=== PATIENT | male | born 1940 | race Caucasian/White ===

== ENCOUNTER 2024-09-19 19:16 | Inpatient (IN) | payer OTHER, SELFPAY ==
[2024-09-19 16:30] VITALS: BP 117/58
[2024-09-19] MEDS: TYLENOL 650 MG PO (16:46)
[2024-09-19 16:55] LABS: % Basophils 0.2 % (0-2); % Immature Granulocytes 0.6 % (0-0.5); % Lymphocytes 3.2 % (20.5-51.1); % Monocytes 6.1 % (1.7-9.3); % Neutrophils 89.9 % (42.2-75.2); Absolute Basophils 0.1 10^3/uL (0-0.2); Absolute Immature Granulocytes 0.1 10^3/uL (0-0.05); Absolute Lymphocytes 0.7 10^3/uL (1.2-3.4); Absolute Monocytes 1.3 10^3/uL (0.1-0.6); Absolute Neutrophils 18.4 10^3/uL (1.4-6.5); Hematocrit 30.7 % (39.0-52.0); Hemoglobin 10.6 g/dL (13.0-18.0); Mean Corp Hgb Conc. 34.5 g/dL (33.0-37.0); Mean Corpuscular Volume 92.7 fL (80.0-94.0); Mean Platelet Volume 9.1 fL (7.4-10.4); Nucleated Red Blood Cells % 0 % (-); Platelet Count 289 10^3/uL (130-400); Red Blood Cell Count 3.31 10^6/uL (4.70-6.10); Red Cell Dist. Width 12.5 % (11.5-14.5); White Blood Cell Count 20.5 10^3/uL (4.8-10.8)
[2024-09-19 17:09] LABS: ALT (SGPT) 36 U/L (0-50); AST (SGOT) 34 U/L (17-59); Albumin 3.8 g/dl (3.5-5.0); Alkaline Phosphatase 140 U/L (38-126); Blood Urea Nitrogen 37 mg/dl (9-20); Calcium 8.6 mg/dl (8.4-10.2); Carbon Dioxide 22 mmol/L (22-30); Chloride 97 mmol/L (98-107); Glucose 280 mg/dl (70-99); Potassium 5.4 mmol/L (3.5-5.1); Sodium 133 mmol/L (135-145); Total Bilirubin 1.5 mg/dl (0.2-1.3); Total Protein 6.7 g/dl (6.3-8.2); eGFR 25.96
[2024-09-19 17:11] LABS: Lactic Acid 4.4 mmol/L (0.7-2.0)
[2024-09-19 17:54] VITALS: BMI 32.6
--- NOTE | 2024-09-19 18:02 | HPS.HSE ---
Family Physician
-
Family Physician:
Chief Complaint
-
3rd left finger infection
History of Present Illness
Patient is a 83-year-old male with past medical history significant for hypertension, paroxysmal atrial fibrillation, HFrEF, CKD IIIb and DM II who presented to [facility] ED for evaluation of 3rd left finger infection. Patient reports a blister to the
finger a few weeks ago, he stated it popped and looked like it was healing. It progressively got worse and went to see primary care today for it. Primary care referred him to ED for evaluation and treatment. Patient reports 'sweats' starting 4 days
ago, denies taking temperature. Denies fever, chills, cough, shortness of breath, nausea, vomiting, constipation, diarrhea or urinary symptoms.
Medical History
Past Medical History
Past Medical History: Reports Other
Additional Past Medical History:
hypertension
paroxysmal atrial fibrillation
HFrEF
CKD IIIb
DM II
COPD
anemia
Past Surgical History: Reports Other
Additional Past Surgical History:
pacemaker
appendectomy
R TKR
bilateral inguinal hernias
hiatal hernia repair
cardiac cath
cardiac ablation
Social History
Tobacco: Former Smoker
Alcohol: None
Drug: None
Personal:
Living: With Family
Family History
Family History: Not pertinent
Allergies / Home Medications
Allergies reflects when Allergies were last updated in [facility].
Home Medications with original date entered in [facility]
Allergy/Medication List:
Allergies
Allergy/AdvReac Type Severity Reaction Status Date / Time
No Known Allergies Allergy Verified 09/19/24 16:29
Home Medications
lovastatin 20 mg tablet 20 mg PO HS High cholesterol 08/10/22
magnesium oxide 400 mg PO DAILY Electrolyte Repletion 08/10/22
umeclidinium 62.5 mcg-vilanterol 25 mcg/actuation powdr for inhalation (Anoro Ellipta) 1 inh inhalation R DAILY Lung/breathing issues 08/10/22
apixaban 2.5 mg tablet (Eliquis) 2.5 mg PO BID 30 days #60 tabs 08/13/22
cyanocobalamin (vitamin B-12) 1,000 mcg tablet 1,000 mcg PO DAILY #30 tabs 08/18/22
ferrous sulfate 325 mg (65 mg iron) tablet (FeroSul) 325 mg PO DAILY #30 tabs 10/11/22
insulin aspar prot-insulin aspart 100 unit/mL (70-30) subcutaneous pen (Novolog Mix 70-30FlexPen U-100) 28 unit (0.28 mL) SC BID@0800,1700 #5 ea 10/11/22
metoprolol succinate 50 mg tablet,extended release 24 hr 100 mg (2 x 50 mg) PO BID #120 tabs 10/11/22
torsemide 5 mg tablet 10 mg (2 x 5 mg) PO DAILY #60 tabs 10/11/22
acetaminophen 500 mg tablet (Tylenol Extra Strength) 1,000 mg PO Q6HPRN PRN mild pain 09/19/24
docusate sodium 100 mg capsule (Stool Softener) 100 mg PO DAILYPRN PRN constipation 09/19/24
Review of Systems
-
History Source: Patient
Constitutional: Reports Night Sweats
EENT: Reports No Symptoms
Respiratory: Reports No Symptoms
Cardiac: Reports No Symptoms
Abdomen/GI: Reports No Symptoms
: Reports No Symptoms
Musculoskeletal: Reports Other (left hand 3rd digits edema and erythema )
Skin: Reports No Symptoms
Neurological: Reports No Symptoms
Endocrine: Reports No Symptoms
Hematologic/Lymphatic: Reports No Symptoms
Psych: Reports No Symptoms
Physical Exam
Vital Signs
Vital Signs
Temp Pulse Resp BP Pulse Ox
102.7 F H 74 20 117/58 96
09/19/24 16:30 09/19/24 16:30 09/19/24 16:30 09/19/24 16:30 09/19/24 16:30
Physical Exam
General: Well Developed, Well Nourished, No Apparent Distress, Conversant and Morbidly Obese
HEENT: NormoCephalic, Moist mucous membranes, Atraumatic, [place] Conjunctivae, Nose Appears Normal and Ears Appear Normal
Respiratory: Clear and Non Labored Respirations
Cardiac: S1/S2 and Regular Rhythm; No Murmur or Rub
Breast: Deferred by me
GI: Soft, Non Tender and Normal Bowel Sounds; No Organomegaly
Rectal: Deferred by Provider
Genito-urinary: Deferred by me
Musculoskeletal: No Clubbing, No Cyanosis and Other (left hand edema )
Skin: Warm (left hand warm to touch with edema ) and IV/Catheter Site
Neuro: Awake, Alert, AO x 3 and Nonfocal/grossly intact
Psych: Calm and Intact Judgment/Insight
Laboratory Results
-
09/19/24 16:45
09/19/24 16:45
Laboratory Results
Lactic Acid 4.4 mmol/L (0.7-2.0) H* 09/19/24 16:45
Total Bilirubin 1.5 mg/dl (0.2-1.3) H 09/19/24 16:45
AST 34 U/L (17-59) 09/19/24 16:45
ALT 36 U/L (0-50) 09/19/24 16:45
Alkaline Phosphatase 140 U/L (38-126) H 09/19/24 16:45
Data Reviewed
-
Diagnostic Radiology: Report Reviewed by me (Left hand: There is diffuse soft tissue swelling with small foci of gas along the middle finger. There is destruction/osteolysis of the distal phalanx consistent with osteomyelitis.)
Lab Data: Labs Reviewed by me (WBC 20.5, hgb 10.6, hct 30.7, neut 89.9, BUN 37, Creat 2.4, Lactic 4.4)
Impression/Plan
-
IMPRESSION/PLAN:
#osteomyelitis
#3rd Left finger infection
WBC 20.5, neut 89.9, Lactic 4.4
Left hand x-ray: There is diffuse soft tissue swelling with small foci of gas along the middle finger. There is destruction/osteolysis of the distal phalanx consistent with osteomyelitis.
- Admit to med/surg
- IV antibiotics
- Consult ID
- Consult orthopedics
- supportive care
- NPO after midnight for possible OR tomorrow
#hyperkalemia
K+ 5.4
likely secondary to hypovolemia
- IVF
- monitor BMP
#DM II
#hyperglycemia
glucose 280
likely secondary to infectious process
- AccuCheck AC & HS
- continue Novolog Mix 70/30
- SSI
#hypertension
- continue metoprolol
#paroxysmal atrial fibrillation
- continue metoprolol
- hold Eliquis
#HFrEF
- hold torsemide
- daily weights
- I & Os
- SSI
#CKD III
BUN 37, Creat 2.4 (appears to be baseline)
- IVF
monitor BMP
#COPD
- continue Anoro Ellipta
#anemia
hgb 10.6, hct 30.7
- continue ferrous sulfate
Code status: full code
DVT Prophylaxis: SCDs
[2024-09-19 18:04] VITALS: BP 98/76
--- NOTE | 2024-09-19 18:11 | ED.GENMED ---
History of Present Illness
General
Chief Complaint: Skin Problem
Source: patient
Exam Limitations: none
Time Seen by Provider: 09/19/24 17:43
Nursing documentation reviewed up to this point in time: agreed with
History of Present Illness
History of Present Illness:
83-year-old male diabetic left finger swelling pain for about a month saw his PCP apparently was not started on antibiotics but referred here for evaluation has been having fevers, pain with some drainage denies any direct trauma
Past History
Past History
ED Past Medical History: Arrthythmia, CAD, CHF, COPD, HTN, Hypercholesterolemia and IDDM
ED Past Surgical History: Appendectomy, Cardiac (catheterizations, ablations, pacemaker, cardioversions), Orthopedic and Other
Social History
Tobacco: Former smoker
Alcohol: None
Drug: None
Personal:
Living: with family
Employment: Retired
Family History
Family History: Other
Review of Systems
Review of Systems
All Other Systems: Not applicable
Constitutional: Reports fever and fatigue
Musculoskeletal: Reports joint pain, joint swelling, muscle stiffness and edema
Phy Exam
Physical Exam
Physical Exam:
Physical Exam
General: no apparent distress, not acutely ill febrile
Neck: No jaw
Heart: s1/s2 regular rate and rhythm, no murmur. equal radial pulses.
Lungs: no acute respiratory distress. clear bilaterally
Neuro: alert and oriented. no focal neurological deficits
Skin: no rash
Psychiatric: well kept. interactive and cooperative
Extremities: Left long finger held in flexion tenderness along the entire flexor and extensor sheath malodorous
Course
Orders/Labs/Results
Orders:
Orders
09/19/24 Dinner
2000 calorie (17 carb) Diabetic
09/19/24 16:37
Hand, Left 3 View [CR Hand - Left Min 3 Views] Urgent
Comment:
Reason For Exam: swelling redness to Left 3rd finger and Left hand
09/19/24 16:44
Acetaminophen [Tylenol] 650 mg .ROUTE .STK-MED ONE
09/19/24 16:45
Complete Blood Count/With Diff Urgent
Comprehensive Metabolic Panel Urgent
Lactic Acid Q4H
Comment: ON ICE, CANCEL 2ND ORDER IF FIRST LACTIC ACID LEVEL <2
Blood Culture Q20M
RYAN Source: Blood/Venous
Specimen Description:
Comment: Urgent from separate sites. If patient screens positive for possible sepsis
Acetaminophen [Tylenol] 650 mg PO NOW STA
09/19/24 17:05
Blood Culture Q20M
RYAN Source: Blood/Venous
Specimen Description:
Comment: Urgent from separate sites. If patient screens positive for possible sepsis
09/19/24 18:12
Vancomycin [Vancocin] 2,000 mg 0.9% Sodium Chloride 500 ml [Nss] 500 ml IV NOW
09/19/24 18:25
0.9% Sodium Chloride 1000 ml [Nss] 1,000 ml IV BOLUS
09/19/24 18:37
Admit/Transfer Patient As Directed
Co-Sign Provider:
Level of Care: Inpatient admission
Assign to:: Medical/Surgical
Physician / Group: Alexandra Keene
Diagnosis: Sepsis, osteomyelitis, hyperkalemia, hyperglycemia
Reason for Hospitalization: Sepsis, osteomyelitis, hyperkalemia, hyperglycemia
Expected length of stay greater than two midnights?: Yes
ELOS- Estimated Length of Stay in days: 3
I certify the patient meets the requirements for IP care: Yes
PRN Pain Medication Management As Directed
May give lesser potent ordered pain med per pt: Yes
preference::
Protocol:: Medication orders for pain may be administered in a
manner that supports deferring to patient preference
when the pt is:
- Requesting an ordered lesser potent pain medication.
Least to most potent pain medications are defined
as: acetaminophen < NSAID < tramadol < opioids
(morphine, oxycodone, hydromorphone).
- Requesting a lesser dose of the same medication IF
ORDERED.
- Requesting a less intrusive route of administration
if both routes are prescribed by the provider (PO <
IV).
09/19/24 18:42
Code Status As Directed
Resuscitation Status: Full Code
09/19/24 20:25
0.9% Sodium Chloride 1000 ml [Nss] 1,000 ml IV 75 mls/hr
Acetaminophen [Tylenol] 650 mg PO Q4HPRN PRN
Dextrose 50%-Water [Dextrose 50% Syringe] 12.5 grams IV [id number] PRN
Glucagon [GlucaGen] 1 mg IM PRN PRN
09/19/24 20:25
INFECTIOUS DISEASE CONSULT Routine
Consulting Provider: Ravi Ch
Was physician already notified: Yes
ORTHOPEDIC CONSULT Routine
Consulting Provider: Talib Chacon
Was physician already notified: Yes
Activity As Directed
Activity Level: Out of Bed-Early Mobility
Bedside Glucose Monitoring As Directed
Frequency: AC&HS
Additional Instructions:: Change to q6h if pt on TPN, tube feeding or not eating
Intake/ Output As Directed
Frequency: Per unit guidelines
Patient Education As Directed
Type: CHF folder
Comment: give on admission. Document in Interdisciplinary Education record
Pneumatic Compression Sleeves As Directed
Type: Knee high
Sleep Apnea Assessment by RN As Directed
Comment:
Physician Instructions:
Vital Signs As Directed
Frequency: Per unit guidelines
Weight As Directed
Frequency: Daily
Type of Scale: Standing Scale
Comment: Daily morning weight. If unable to stand, use balanced bed scale.
Weight As Directed
Frequency: Once
Type of Scale: Standing Scale
Comment: Upon Admission. If unable to stand, use balanced bed scale.
Pulse Ox/cont/shift [RESP] Routine
Quantity: 1
Special Instructions: Daily pulse oximetry at rest. If greater than 92% at rest also obtain pulse oximetry
while ambulating as tolerated.
DX Deep Vein Thrombosis Video Routine
09/19/24 20:45
Lactic Acid Q4H
Comment: ON ICE, CANCEL 2ND ORDER IF FIRST LACTIC ACID LEVEL <2
09/19/24 21:00
Atorvastatin [Lipitor] 10 mg PO QPM
Metoprolol Xl [Toprol Xl] 100 mg PO BID
09/20/24 Breakfast
NPO
Allow oral meds: Yes
Allow clear liquids: No
Basic Metabolic Panel IN AM
Complete Blood Count/No Diff IN AM
Glycohemoglobin (HgbA1c) IN AM
09/20/24 07:30
Insulin Aspart Corrective Low [Novolog Flexpen-Low Resistance] See Protocol SC AC
09/20/24 08:00
Ferrous Sulfate [Feosol] 325 mg PO DAILY
Insulin Aspart/Asp Protamine [Novolog Mix 70/30 Flexpen] 28 units SC BID@0800,1700
Magnesium l-Lactate [Mag-Tab Sr] 84 mg PO DAILY
Torsemide [Demadex] 10 mg PO DAILY
umeclidinium-vilanterol [Anoro Ellipta] 1 inh INH R DAILY
Abnormal Lab Results
09/19/24
16:45
WBC 20.5 H 10^3/uL
(4.8-10.8)
RBC 3.31 L 10^6/uL
(4.70-6.10)
Hgb 10.6 L g/dL
(13.0-18.0)
Hct 30.7 L %
(39.0-52.0)
MCH 32.0 H pg
(27.0-31.0)
Abs Immat Gran (auto) 0.1 H 10^3/uL
(0-0.05)
Absolute Neuts (auto) 18.4 H 10^3/uL
(1.4-6.5)
Absolute Lymphs (auto) 0.7 L 10^3/uL
(1.2-3.4)
Absolute Monos (auto) 1.3 H 10^3/uL
(0.1-0.6)
Immature Gran % 0.6 H %
(0-0.5)
Neutrophils % 89.9 H %
(42.2-75.2)
Lymphocytes % 3.2 L %
(20.5-51.1)
Sodium 133 L mmol/L
(135-145)
Potassium 5.4 H mmol/L
(3.5-5.1)
Chloride 97 L mmol/L
(98-107)
BUN 37 H mg/dl
(9-20)
Creatinine 2.4 H mg/dL
(0.7-1.3)
Glucose 280 H mg/dl
(70-99)
Lactic Acid 4.4 H* mmol/L
(0.7-2.0)
Total Bilirubin 1.5 H mg/dl
(0.2-1.3)
Alkaline Phosphatase 140 H U/L
(38-126)
09/19/24 16:45
09/19/24 16:45
Vital Signs
Initial and Last Documented VS:
Initial Vital Signs
Temp Pulse Resp BP Pulse Ox
102.7 F H 74 20 117/58 96
09/19/24 16:30 09/19/24 16:30 09/19/24 16:30 09/19/24 16:30 09/19/24 16:30
Last Documented Vital Signs
Temp Pulse Resp BP Pulse Ox
97.7 F 78 18 119/61 95
09/19/24 20:43 09/19/24 20:43 09/19/24 20:43 09/19/24 20:43 09/19/24 20:43
MDM/Problems Addressed
Differential Diagnosis Includes:
Cellulitis osteomyelitis flexor tenosynovitis feline
MDM/Problems Addressed:
Finger infection
Chronic conditions affecting care: DM
Acute Exacerbation and/or Progression of Chronic Illness: DM
*Radiology
Radiology exam reviewed: radiology read reviewed
*Pulse Oximetry
Patient hypoxic: no
*Critical Care Note
Total Time (30-74mins, 75-104mins- exclusive of procedures): 30
Update Note
Update Note:
Update patient with significant finger infection he is febrile but overall nontoxic-appearing diabetic message sent to hospitalist and on-call orthopedist, at this point will start IV antibiotics
ED Attending Note
-
Portions of this chart may have been created with voice recognition software.� Occasional wrong word or��sound alike� substitutions may have occurred due to the inherent limitations of voice recognition software.
Discharge Plan
Departure
Patient Disposition: Admit
Date of Disposition: 09/19/24
Time of Disposition: 18:05
Admit to: Med/Surg
Presentation/result/management discussed w/ accepting MD/DO: Hospitalist
Patient with high blood pressure during this ER visit?: No
Condition: Fair
Discharge Problem:
Finger osteomyelitis, left, Obesity, Sepsis, Diabetes
Interventions
Interventions:
*Risk Screen - Suicide Last Done: 09/19/24 20:40
*General Assessment Last Done: 09/19/24 17:54
*Neglect/Abuse Screening Last Done: 09/19/24 17:54
*ED- Fall Risk Assessment Last Done: 09/19/24 17:54
*ED COVID-19 Vaccine History Last Done: 09/19/24 20:40
*Nursing Disposition Last Done: 09/19/24 20:20
ED-Skin Assessment Last Done: 09/19/24 17:54
Discharge Date and Time
Discharge Date/Time: 09/19/24 20:20
[2024-09-19] MEDS: VANCOCIN 540 MG IV (18:20)
--- NOTE | 2024-09-19 18:37 | W.PN.UPDATE ---
Update Note
Progress Note Update
This is an addendum to H&P written by Lindsay Galeas on 09/19/2024. Patient seen examined independently with [employer] [facility].
83-year-old male past medical history of paroxysmal atrial fibrillation on Eliquis, CKD 3B, CHF, anemia, sick sinus syndrome, COPD presenting with third left finger infection and fever.
Patient with temperature of 102.7. Patient has severely swollen left third finger with erythema and limited range of motion.
Labs show leukocytosis of 20, stable anemia and CKD, potassium 5.4, blood sugar 280, lactic acid 4.4.
Hand x-ray shows diffuse soft tissue swelling with small foci of gas along the middle finger. There is destruction/osteomyelitis of the distal phalanx.
Patient with sepsis secondary to osteomyelitis of the left third finger. Hyperkalemia secondary to hypovolemia. Hyperglycemia secondary to infection.
IV fluids. Check blood cultures. Vancomycin/Zosyn. Hold Eliquis. Orthopedics consulted. ID consulted.
Continue 70/30 Insulin with ISS.
[2024-09-19] MEDS: NSS 1000 IV ×2 (18:44→21:35)
[2024-09-19 19:00] VITALS: BP 112/49
[2024-09-19 20:43] VITALS: BP 119/61
[2024-09-19 20:44] VITALS: BMI 35.2
--- NOTE | 2024-09-19 20:45 | VATNOTE ---
called for left arm IV site pain; iv removed due to phlebitis; not red but firm and extremely painful. heat applied.
[2024-09-19 20:56] VITALS: BMI 35.2
--- NOTE | 2024-09-19 21:27 | W.PN.UPDATE ---
Update Note
Progress Note Update
83-year-old gentleman with type 2 diabetes mellitus on insulin, paroxysmal atrial fibrillation on Eliquis, heart failure with reduced ejection fraction, pacemaker, CKD 3B, COPD, and anemia who developed a blister over the left long finger
approximately 7 days ago. Subsequent to this he has developed increasing pain, swelling, and erythema about his left long finger. He developed sweats and a fever (102.7 F) and presented to [facility]'s emergency room today. Clinical
presentation consistent with significant left long finger infection with underlying osteomyelitis. Case discussed with Dr. Ming Larose. Patient is being admitted to the hospitalist service and will be placed on intravenous antibiotics. Over
the next several days, based upon clinical course, he will likely undergo additional diagnostic studies (Possibly MRI) and likely will require partial or complete amputation of the left long finger. Care will be assumed by my associate Ming
Lachelle with [facility]. A full consult has been dictated.
[2024-09-19] MEDS: LIPITOR 10 MG PO (21:33)
[2024-09-19] MEDS: TOPROL XL 100 MG PO (21:34)
[2024-09-19] MEDS: ZOSYN 50 IV (21:34)
[2024-09-19 21:47] LABS: Glucose - Point of Care 255 mg/dl (70-99)
--- NOTE | 2024-09-19 21:57 | PTCARENOTE ---
Pt able to walk from stretcher to bed w/ SPC. Pt AAOx3, no c/o pain. L 3rd finger swollen, no drainage noted. Pt also moved to private room d/t hxd of MRSA. Pt able to make needs known, call boland within reach.
[2024-09-19 22:45] LABS: Lactic Acid 1.8 mmol/L (0.7-2.0)
[2024-09-20] MEDS: ZOSYN 50 IV ×4 (01:03→19:51)
[2024-09-20 05:36] VITALS: BMI 35.3
[2024-09-20 06:36] VITALS: BMI 35.3
--- NOTE | 2024-09-20 07:06 | W.PN.HOSP.TC ---
Addendum entered and electronically signed by Emigdio Greenwood MD 09/20/24 19:46:
Attending Addendum-
I saw and evaluated the patient. I reviewed the resident�s note and agree with findings and plan as documented in the resident�s note. Sub: complains of pain in left hand. febrile with chills overnight. Denies NV CP palps. Full 12 point ROS reviewed
and negative except as documented Exam: Vitals reviewed in chart GEN-NAd heart RRR lungs clear abd soft ND ND LE no edema LUE 3rd digit TTP red warm swollen
Plan:
# Sepsis secondary to 3rd Left finger cellulitis and likely osteomyelitis
-WBC trending up
-Left hand x-ray: There is diffuse soft tissue swelling with small foci of gas along the middle finger. There is destruction/osteolysis of the distal phalanx consistent with osteomyelitis.
-cont zosyn
-ID and orthopedics on board
-MRI monday after cards clearance (pacer)
-possible OR on Monday
-supportive care
#Hyperkalemia
-resolved
-IVF
-monitor BMP
#DM II
- AccuCheck AC & HS
- continue Novolog Mix 70/30
- SSI
#Hypertension
- continue metoprolol
#Paroxysmal atrial fibrillation
- continue metoprolol
- hold Eliquis
#HFrEF
- not in AE
- echo 08/2022- EF 30-40%
- hold torsemide cont IVF
- daily weights
- I & Os
- SSI
#CKD 4
-unknown baseline @ 2.2 (appears to be baseline)
-IVF
-monitor BMP
#COPD
- not in AE
- continue Anoro Ellipta
#HLD-cont lovastatin
#SSS- s/p pacer
Time spent coordinating care, review of plan of care with resident, personally reviewed records in EMR, med rec, consults, notes, labs, radiology, d/w nursing ID and ortho� 53 mins
Original Note:
Today's Communication/Plan
-
Cw IV Abx per ID
To obtain further imaging via MRI on Monday, tentative OR date for Monday
Pain control with Tylenol/Oxy
Assessment / Plan
Assessment / Plan
83 year old male with x3 weeks of nonhealing wound of the L middle finger which progressed to systemic symptoms of fevers and chills
#L Middle Finger Osteomyelitis
- hand XR showing gas foci, bone degradation, soft tissue swelling
- Ortho consulted; surgical debridement with distal amputation vs. full finger amputation, possible further imaging with MRI
- MRI to be done on Monday, OK to eat for now
- Pain control with Tylenol/Oxy prn
- c/w IV Abx, ID following
#Sepsis secondary to Osteomyelitis
- BCx drawn, results pending. MRSA nares pending.
- c/w IV Abx, ID following
#IDDM
- sugars at home per patient are controlled, however since infection they have been elevated.
- Insulin 70/30 28U BID at home, will c/w home dose + LDISS
- Will adjust insulin prior to surgery for NPO when it is scheduled
#Paroxysmal Afib, s/p cardioversion 10/2022
- c/w Tele
- Holding Eliquis
- heparin ppx for now
#HFrEF
- last Echo 2022 EF 30-40%
- not in acute exacerbation
- c/w Metoprolol
- holding Torsemide
- will consult cardiology for sx clearance
#Hyperbilirubinemia
- Tbili elevated at 1.5, no transaminitis, no abd sx.
- will continue to monitor
#CKD Stage III
- kidney function at baseline
- c/t monitor
#COPD
- not wheezing or in acute exacerbation
- c/w [place]river[place] Respimat
#Chronic Anemia
- iron deficiency vs. CKD IIIb
- c/w iron supplement
DVT Ppx: Heparin 5000 q12
Code Status: Full Code
Anticipated Discharge: > 48 hours
Subjective/Interval History
-
Date of Service: September 20, 2024
No acute events overnight. Occasional fevers and chills. Pain at rest is minimal, worse when touching the finger.
Objective Data
-
Labs:
Laboratory Results
09/20/24
06:00
WBC Pending
Hgb Pending
Hct Pending
Plt Count Pending
Sodium Pending
Potassium Pending
Chloride Pending
Carbon Dioxide Pending
BUN Pending
Creatinine Pending
Glucose Pending
Calcium Pending
Vital Signs:
Vital Signs
Temp Pulse Resp BP Pulse Ox
97.7 F 78 18 119/61 95
09/19/24 20:43 09/19/24 20:43 09/19/24 20:43 09/19/24 20:43 09/19/24 20:43
I&O
09/19/24 09/20/24 09/21/24
06:59 06:59 06:59
Intake Total 865 / 865
Balance 865 / 865
Review of Systems
-
History Source: Patient
Constitutional: Reports Fever and Chills
EENT: Reports No Symptoms Reported
Respiratory: Reports No Symptoms
Cardiac: Reports No Symptoms
Abdomen/GI: Reports No Symptoms
Musculoskeletal: Reports Other (Pain, swelling, redness in the L hand and L middle finger)
Hematologic / Lymphatic: Reports No Symptoms
Physical Exam
-
General: Well Developed, Well Nourished, No Apparent Distress, Comfortable and Obese
HEENT: Normocephalic, Atraumatic, Moist Mucous Membranes, Anicteric, [place] Conjunctivae, Nose Appears Normal and Ears Appear Normal
Respiratory: Crackles; Negative Wheezes, Rales or Rhonchi
Cardiac: Regular Rhythm and S1/S2; Negative Murmur or Rub
Breast: N/A
GI: Soft, Nontender, Nondistended and Normal Bowel Sounds
Genito-urinary: Deferred by me
Musculoskeletal: No Clubbing, No Cyanosis and Other (significant edema, erythema and warm of the L hand with profound tense swelling of the L middle finger. Scaling and serous drainage from the tip of the finger. Severely tender to the touch. )
Skin: Warm and Dry
Neuro: Awake, Alert and Oriented
[2024-09-20 07:44] VITALS: BP 135/54
[2024-09-20 08:03] LABS: Glucose - Point of Care 274 mg/dl (70-99)
[2024-09-20 08:07] LABS: Hemoglobin 9.2 g/dL (13.0-18.0); Mean Corp Hgb Conc. 34.1 g/dL (33.0-37.0); Mean Corpuscular Hgb 31.5 pg (27.0-31.0); Mean Corpuscular Volume 92.5 fL (80.0-94.0); Platelet Count 253 10^3/uL (130-400); Red Blood Cell Count 2.92 10^6/uL (4.70-6.10); Red Cell Dist. Width 12.5 % (11.5-14.5); White Blood Cell Count 23.1 10^3/uL (4.8-10.8)
[2024-09-20] MEDS: STRIVERDI RESPIMAT 2 PUFF INH (08:10)
[2024-09-20] MEDS: SPIRIVA RESPIMAT 2.5 MCG 2 PUFF INH (08:10)
[2024-09-20 08:35] LABS: Blood Urea Nitrogen 36 mg/dl (9-20); Calcium 8.2 mg/dl (8.4-10.2); Carbon Dioxide 20 mmol/L (22-30); Chloride 101 mmol/L (98-107); Estimated Creatinine Clearance 30 ml/min; Glucose 253 mg/dl (70-99); Potassium 4.4 mmol/L (3.5-5.1); Sodium 132 mmol/L (135-145); eGFR 28.81
[2024-09-20] MEDS: TYLENOL 650 MG PO ×2 (09:03→23:27)
[2024-09-20] MEDS: FEOSOL 325 MG PO (09:03)
[2024-09-20] MEDS: TOPROL XL 100 MG PO ×2 (09:03→19:47)
[2024-09-20] MEDS: DEMADEX 10 MG PO (09:03)
[2024-09-20] MEDS: MAG-TAB SR 84 MG PO (09:03)
[2024-09-20 09:19] LABS: Glycohemoglobin (HgbA1c) 8.8 % (4.0-5.6)
[2024-09-20] MEDS: NOVOLOG MIX 70/30 FLEXPEN 14 UNITS SC (09:22)
[2024-09-20] MEDS: ROXICODONE 2.5 MG PO ×2 (10:21→17:27)
[2024-09-20] MEDS: NOVOLOG FLEXPEN-LOW RESISTANCE 3 UNITS SC ×2 (10:36→17:30)
--- NOTE | 2024-09-20 11:29 | CON.ID ---
Addendum entered and electronically signed by Ravi Ch DO 09/20/24 13:15:
MRI ordered as urgent earlier today.
Received notification from MRI service that Pt has PPM in place, which will require clearance by cardiology. They will reach out to them to complete paperwork.
Additionally, pt's with pacemakers are not imaged on weekends.
Original Note:
Consultation
-
Date/Time Consultation Requested: 09/19/20242024
Date/Time Consultation Performed: 09/20/2024 1100
Requesting Provider: Adal
Performing Provider: Jing
Reason for Consultation: Left 3rd finger infection
Chief Complaint / Past History
History of Present Illness
Aashish Mancilla is an 83-year-old man being evaluated at the request of Lindsay Galeas regarding a left third finger infection. History is obtained from chart review, along with patient interview.
The patient has a significant past medical history of diabetes, coronary artery disease and chronic kidney disease. He reports that he has had multiple episodes of small blisters develop on the tips of his fingers over the years. He reports the
most recent blister developed several months ago. Over that time he has performed local care to the area. He admits to approximately 1 month of mild swelling of the area, along with mild pain. He reports the finger was stable up until about 4
days ago when it had significant increase in swelling, along with pain. He saw his PCP yesterday who immediately sent him to the emergency room for further evaluation.
In the ER, he was found to be febrile to 102 degrees, and to have a marked leukocytosis. He was placed on empiric vancomycin and Zosyn, and Infectious Diseases is now asked to comment upon further antimicrobial therapy.
At present, he notes marked discomfort in the third finger, with some tenderness along the palmar area of the left hand. He denies any axillary swelling, or erythema extending up his forearm.
Past History
Additional Past Medical History:
CAD
CHF
COPD
HTN
HLD
DM type II
CKD 3b
Additional Past Surgical History:
Appendectomy
PCI
Cardiac ablation
PPM placement
Right TKR
Allergy History:
No Known Allergies Allergy (Verified 09/19/24 16:29)
Medications Reviewed: Yes
Current Antibiotics:
Zosyn 2.25 g IV every 6 hours
Vancomycin x 1 dose
Social History
Tobacco: Former Smoker
Alcohol: None
Drug: None
Personal:
Living: With Family
Employment: Retired
Family History
Family History: Not Pertinent
Review of Systems
Vital Signs
Temp Pulse Resp BP Pulse Ox
99.0 F 72 16 135/54 96
09/20/24 07:44 09/20/24 08:11 09/20/24 08:11 09/20/24 07:44 09/20/24 07:44
Physical Exam
Physical Exam
Constitutional: No Acute Distress, Comfortable, Non-toxic and Obese
Head: Normocephalic
Eyes: Pupils Equal, Pupils Round and No Conjunctival Hemorrhage
Cardiovascular: Regular Rate and S1/S2; Negative S3/S4
Pulmonary: Clear; Negative Wheezes, Rales or Rhonchi
Gastrointestinal: Soft, Non Tender and Non Distended
Extremities: Other (Marked edema of the left third finger with marked tenderness and erythema. Small amount of serous drainage.)
Skin: Warm and Dry
Neurological: Awake and Alert
Psychological: Calm
Lab / Diagnostic Study Results
09/20/24 07:54
09/20/24 07:54
Abs Immat Gran (auto) 0.1 10^3/uL (0-0.05) H 09/19/24 16:45
Absolute Neuts (auto) 18.4 10^3/uL (1.4-6.5) H 09/19/24 16:45
Absolute Lymphs (auto) 0.7 10^3/uL (1.2-3.4) L 09/19/24 16:45
Absolute Monos (auto) 1.3 10^3/uL (0.1-0.6) H 09/19/24 16:45
Absolute Basos (auto) 0.1 10^3/uL (0-0.2) 09/19/24 16:45
Immature Gran % 0.6 % (0-0.5) H 09/19/24 16:45
Neutrophils % 89.9 % (42.2-75.2) H 09/19/24 16:45
Lymphocytes % 3.2 % (20.5-51.1) L 09/19/24 16:45
Monocytes % 6.1 % (1.7-9.3) 09/19/24 16:45
Eosinophils % 0.0 % (0-6) 09/19/24 16:45
Basophils % 0.2 % (0-2) 09/19/24 16:45
Lactic Acid 1.8 mmol/L (0.7-2.0) 09/19/24 22:26
Microbiology Results
Micro:
09/20/24 07:54 Blood Culture - Pending
Blood/Venous
09/19/24 22:11 MRSA Screen - Pending
Nose
09/19/24 16:45 Blood Culture - Pending
Blood/Venous
Imaging:
09/19/2024 X-ray left hand: Osteolysis/erosion of the distal phalanx of the middle finger. Diffuse soft tissue swelling of the middle finger is noted with small foci of gas. There is extensive vascular calcifications. Please see full dictation for
additional detail. Film personally viewed.
Assessment / Plan
Severe SSTI of left third finger with gas noted in tissues
Marked leukocytosis
Fever
CKD 3b
- Est CrCl ~ 30
DM type II; uncontrolled (HbA1c = 8.8)
CAD
CHF
COPD
HTN
Recommendations:
Continue with abx (vanco, zosyn) dosed for renal renal insufficiency.
Check MRI to further delineate degree of infection.
May consider I&D of the area for source control.
Monitor white count and temperature curve.
Monitor pending blood cultures.
Tight glucose control to facilitate leukocyte function.
Given underlying degree of infection and uncontrolled DM, patient high risk for digit loss.
Care Review
Plan reviewed with: Physician (Primary Inpatient service, Ortho)
--- NOTE | 2024-09-20 11:53 | PHA.VAN.IN ---
Assessment
- Assessment
Renal Function: Appears similar to baseline
Concomitant Antimicrobials: piperacillin/tazobactam
Random level = 13.3 - drawn ~18H after 2g loading dose
Plan
- Plan
Initial / Loading Dose: 2000mg - 09/19 18:20
Maintenance Regimen: dosing by level - re-dose today with 1000mg
Monitoring: random 09/21 06
Pharmacokinetics Vancomycin I
- -
Patient Age: 83
Patient Sex: Male
Vancomycin Day #: 1
Indication: Bone And Joint
Requesting Provider: Dr. Ch
Pertinent Antimicrobial Allergies:
NKDA
Height / Weight:
Height 5 ft 9 in
Actual Weight 108.494 kg
Pertinent Past Medical History: BMI ~35, DM, CKD
- Vital Signs / Lab Results
Temp Pulse Resp BP Pulse Ox
99.0 F 72 16 135/54 96
09/20/24 07:44 09/20/24 08:11 09/20/24 08:11 09/20/24 07:44 09/20/24 07:44
Lab Results - Hematology
09/19/24 09/20/24
16:45 07:54
WBC 20.5 H 23.1 H
Lab Results - Chemistry
09/19/24 09/20/24
16:45 07:54
BUN 37 H 36 H
Creatinine 2.4 H 2.2 H
Estimated Creat Clear 30
Albumin 3.8
09/19/24 09/19/24
16:45 22:26
Lactic Acid 4.4 H* 1.8
09/20/24
12:27
Random Vancomycin 13.3
[2024-09-20 12:11] LABS: Glucose - Point of Care 249 mg/dl (70-99)
[2024-09-20] MEDS: NOVOLOG FLEXPEN-LOW RESISTANCE 2 UNITS SC (12:58)
[2024-09-20 13:19] LABS: Vancomycin Random 13.3 ug/ml
--- NOTE | 2024-09-20 13:37 | CM ---
electrical engineering manager reviewed patient's chart and met with patient and patient lives with spouse in a one story home. Patient is independent with adl's and ambulation, no dme, patient drives, home with spouse when stable, no needs per patient.
PCP: Dr. Hua Regalado
Pharmacy: [facility] in [place].
[2024-09-20] MEDS: NSS 1000 IV (13:53)
[2024-09-20 14:52] VITALS: BP 88/51
[2024-09-20] MEDS: VANCOCIN 200 IV (16:15)
[2024-09-20 16:42] LABS: Glucose - Point of Care 290 mg/dl (70-99)
[2024-09-20] MEDS: LIPITOR 10 MG PO (17:29)
[2024-09-20] MEDS: NOVOLOG MIX 70/30 FLEXPEN 28 UNITS SC (17:30)
[2024-09-20] MEDS: HEPARIN 5000 UNITS SC (19:47)
[2024-09-20 22:00] VITALS: BP 130/75
[2024-09-20 22:22] LABS: Glucose - Point of Care 243 mg/dl (70-99)
[2024-09-21] MEDS: ZOSYN 50 IV ×4 (01:36→19:43)
[2024-09-21 05:01] VITALS: BMI 36.4
[2024-09-21] MEDS: NSS 1000 IV ×2 (06:06→17:38)
[2024-09-21 07:19] LABS: % Basophils 0.4 % (0-2); % Eosinophils 0.3 % (0-6); % Immature Granulocytes 0.6 % (0-0.5); % Lymphocytes 4.4 % (20.5-51.1); % Monocytes 5.1 % (1.7-9.3); % Neutrophils 89.2 % (42.2-75.2); Absolute Basophils 0.1 10^3/uL (0-0.2); Absolute Eosinophils 0.1 10^3/uL (0-0.7); Absolute Immature Granulocytes 0.1 10^3/uL (0-0.05); Absolute Monocytes 1.1 10^3/uL (0.1-0.6); Absolute Neutrophils 19.7 10^3/uL (1.4-6.5); Hemoglobin 9.1 g/dL (13.0-18.0); Mean Corp Hgb Conc. 33.7 g/dL (33.0-37.0); Mean Corpuscular Hgb 31.7 pg (27.0-31.0); Mean Corpuscular Volume 94.1 fL (80.0-94.0); Mean Platelet Volume 9.3 fL (7.4-10.4); Nucleated Red Blood Cells % 0 % (-); Platelet Count 264 10^3/uL (130-400); Red Blood Cell Count 2.87 10^6/uL (4.70-6.10); Red Cell Dist. Width 12.8 % (11.5-14.5); White Blood Cell Count 22.2 10^3/uL (4.8-10.8)
[2024-09-21] MEDS: STRIVERDI RESPIMAT 2 PUFF INH (07:24)
[2024-09-21] MEDS: SPIRIVA RESPIMAT 2.5 MCG 2 PUFF INH (07:24)
[2024-09-21 07:39] LABS: ALT (SGPT) 32 U/L (0-50); AST (SGOT) 26 U/L (17-59); Albumin 2.8 g/dl (3.5-5.0); Alkaline Phosphatase 148 U/L (38-126); Blood Urea Nitrogen 40 mg/dl (9-20); Calcium 8.2 mg/dl (8.4-10.2); Carbon Dioxide 19 mmol/L (22-30); Chloride 103 mmol/L (98-107); Estimated Creatinine Clearance 26 ml/min; Glucose 145 mg/dl (70-99); Potassium 4.5 mmol/L (3.5-5.1); Sodium 134 mmol/L (135-145); Total Bilirubin 1.3 mg/dl (0.2-1.3); Total Protein 5.5 g/dl (6.3-8.2); eGFR 23.58
[2024-09-21 07:52] LABS: Vancomycin Random 17.3 ug/ml
[2024-09-21 07:59] VITALS: BP 113/69
[2024-09-21 08:13] LABS: Glucose - Point of Care 152 mg/dl (70-99)
[2024-09-21] MEDS: NSS IV (08:26)
[2024-09-21] MEDS: HEPARIN 5000 UNITS SC ×2 (08:27→19:40)
[2024-09-21] MEDS: FEOSOL 325 MG PO (08:28)
[2024-09-21] MEDS: TOPROL XL 100 MG PO ×2 (08:28→19:42)
[2024-09-21] MEDS: MAG-TAB SR 84 MG PO (08:28)
--- NOTE | 2024-09-21 08:53 | PHA.VAN.FU ---
Vancomycin Assessment / Plan
- Assessment
Renal Function: SCR Increasing (2.2->2.6)
WBC's are: Trending Down (23.1->22.2)
In the past 24 hrs, patient has been: Febrile (100.5)
Concomitant Antimicrobials: Piperacillin/Tazobactam
- Assessment - Therapeutic Drug Monitoring
Random Level: 17.3 ~14.5H after 1G infusion
- Dosing Plan
Dosing by Level: Hold off on dosing today
- Monitoring Plan
Random Level: 09/22/24 0600
- Follow Up
Pharmacy will continue to follow.
Vancomycin Follow UP
- -
Patient Age: 83
Patient Sex: Male
Vancomycin Day #: 2
Indication: Bone And Joint
Requesting Provider: Dr. Ch
Pertinent Antimicrobial Allergies:
NKDA
Height / Weight:
Height 5 ft 9 in
Actual Weight 111.811 kg
Pertinent Past Medical History: BMI ~35, DM, CKD
- Vital Signs / Lab Results
Temp Pulse Resp BP Pulse Ox
98.4 F 108 18 113/69 95
09/21/24 07:59 09/21/24 08:28 09/21/24 07:59 09/21/24 08:28 09/21/24 07:59
Lab Results - Hematology
09/19/24 09/20/24 09/21/24
16:45 07:54 06:35
WBC 20.5 H 23.1 H 22.2 H
Lab Results - Chemistry
09/19/24 09/20/24 09/21/24
16:45 07:54 06:35
BUN 37 H 36 H 40 H
Creatinine 2.4 H 2.2 H 2.6 H
Estimated Creat Clear 30 26
Albumin 3.8 2.8 L
09/19/24 09/19/24
16:45 22:26
Lactic Acid 4.4 H* 1.8
Microbiology Results
09/20/24 07:54 Blood Culture - Preliminary
Blood/Venous No Growth in 24 hours- Final report to follow
09/19/24 16:45 Blood Culture - Preliminary
Blood/Venous No Growth in 24 hours- Final report to follow
Therapeutic Drug Monitoring
Random Vancomycin 17.3 ug/ml 09/21/24 06:35
--- NOTE | 2024-09-21 09:15 | W.PN.UPDATE ---
Update Note
Progress Note Update
Patient seen and evaluated by Orthopedic surgery this morning. Patient resting comfortably in bed eating breakfast. He denies any new complaints or concerns at this time.
Clinical presentation consistent with significant left long finger infection with underlying osteomyelitis.
Case has been discussed with Dr. Ming Larose.
Recommend continuing with intravenous antibiotics (Vanco and Zosyn) per ID recommendations. Awaiting MRI to further delineate extent of infection.
Patient will likely require amputation vs. ray resection of the left long finger. He is tentatively placed on the OR schedule for 09/24/2024. NPO pMN Monday09/23/2024.
Orthopedic surgery will continue to follow along.
[2024-09-21] MEDS: NOVOLOG MIX 70/30 FLEXPEN 28 UNITS SC ×2 (09:22→18:05)
[2024-09-21] MEDS: NOVOLOG FLEXPEN-LOW RESISTANCE 1 UNITS SC (09:22)
--- NOTE | 2024-09-21 11:43 | W.PN.HOSP.TC ---
Today's Communication/Plan
-
IV vancomycin and Zosyn
Hold torsemide and Eliquis
MRI of hand
Potential OR on 09/24
Assessment / Plan
Assessment / Plan
#Sepsis secondary to osteomyelitis of third digit of hand (L)
-Presented after blister on the finger popped, subsequently developed pain and swelling with fevers
-Had leukocytosis and tachycardia on arrival, SIRS positive with source of infection
-X-ray of the hand showed diffuse soft tissue swelling with small foci of gas, findings consistent with OM
-Currently on IV vancomycin and Zosyn for broad-spectrum gram-positive, negative, anaerobic coverage
-Orthopedics is following, planning for MRI Monday to further assess extent of osteomyelitis
-Added to OR schedule for 09/24, anticipate likely amputation
-Trend CBC and temperature curve on IV antibiotics, follow blood cultures
-As needed analgesics
-Hold torsemide and Eliquis
#Poorly controlled IDDM 2
-Hemoglobin A1c 8.8% on home regimen of NovoLog 70/30 28 units twice daily
-No known microvascular ischemic disease complications
-Suspect his diabetes is contributing to his finger infection
-Initially on 14 units twice daily here, sugars improved when on home regimen
-Continue to monitor Accu-Cheks, consider diabetes consult if sugars worsen
#Primary hypertension
-History of LVH likely related to systemic hypertension
-Home medications include metoprolol succinate, and torsemide
-Not on first-line antihypertensive regimen
-Blood pressure currently well-controlled
#Paroxysmal AF
-Status post ablation (presumed pulmonary vein isolation)
-Home medications include metoprolol succinate and Eliquis
-Appears to be in sinus rhythm at this time, HR WNL
-Holding Eliquis as above with planned OR Monday
-Continued on telemetry
#Chronic HFrEF
-Secondary to nonischemic cardiomyopathy (?), no history of obstructive CAD
-Last echocardiogram with LVEF near 30-40%; no AICD at this time
-GDMT includes beta-laila; not on ARNI/MRA/SGLT2i due to CKD
-Home regimen also includes torsemide 10 mg daily; held at this time due to sepsis
-Appears euvolemic at this time, on RA
-Monitor I's/O's and weights
#CKD stage III-IV
#Chronic anemia
-Unclear etiology; baseline creatinine fairly volatile but likely near 2.2-2.5
-Apparent complications with anemia of chronic kidney disease; mild acidemia; no BMD known
-Chronic anemia also related to iron deficiency anemia for which he takes ferrous sulfate
-Has received light IV fluids here, creatinine stable near 2.5, bicarb 19
-Continue to trend BMP
#COPD without exacerbation
-No recent PFTs; does not require supplemental oxygen at baseline
-Home regimen includes Anoro Ellipta
-Currently on RA, no signs of bronchospasm
#Dyslipidemia
-No known ASCVD history, Home regimen includes lovastatin 20 mg nightly
#Sick sinus syndrome s/p PPM
-Heart rate slightly tachycardic here, sinus
-No signs of pacemaker dysfunction
DVT prophylaxis: SQ heparin
Diet: Carbohydrate controlled
CODE STATUS: Full code
Anticipated Discharge: > 48 hours
Subjective/Interval History
-
Date of Service: September 21, 2024
Seen and examined at bedside. No acute events reported overnight. AFVSS this morning
Remains with leukocytosis. No fevers. Pain in finger present but adequately controlled with analgesics
He denies any new complaints as of today. Planning for the OR for likely finger amputation on 09/24, MRI of the hand prior
Objective Data
-
Labs:
Laboratory Results
09/21/24
06:35
WBC 22.2 H
Hgb 9.1 L
Hct 27.0 L
Plt Count 264
Sodium 134 L
Potassium 4.5
Chloride 103
Carbon Dioxide 19 L
BUN 40 H
Creatinine 2.6 H
Glucose 145 H
Calcium 8.2 L
Total Bilirubin 1.3
AST 26
ALT 32
Alkaline Phosphatase 148 H
Vital Signs:
Vital Signs
Temp Pulse Resp BP Pulse Ox
98.4 F 108 18 113/69 95
09/21/24 07:59 09/21/24 08:28 09/21/24 07:59 09/21/24 08:28 09/21/24 07:59
I&O
09/20/24 09/21/24 09/22/24
06:59 06:59 06:59
Intake Total 865 / 865 480 / 480
Balance 865 / 865 480 / 480
Review of Systems
-
History Source: Patient
All other systems: Reviewed and negative
Physical Exam
-
General: Well Developed, No Apparent Distress, Comfortable and Obese
HEENT: Normocephalic, Atraumatic, Moist Mucous Membranes and Anicteric
Respiratory: Clear to Auscultation and Non Labored Respirations; Negative Accessory Resp Muscle Use
Cardiac: Regular Rhythm, S1/S2 and Other (No edema); Negative Murmur, Rub, JVD or Gallop
GI: Soft, Nontender, Nondistended and Normal Bowel Sounds
Musculoskeletal: No Clubbing and No Cyanosis
Skin: Warm, Dry, Normal Turgor and Other (Swelling and erythema with crusting of the third digit of the left hand, tenderness to palpate); Negative Rash
Neuro: AO x 3 and Nonfocal/Grossly Intact; Negative Tremors
Psych: Calm
Data Reviewed
-
Labs: Labs Reviewed by me and Discussed with Patient
[2024-09-21 12:13] LABS: Glucose - Point of Care 255 mg/dl (70-99)
--- NOTE | 2024-09-21 13:32 | W.PN.ID1 ---
Date of Service
Date of Service: September 21, 2024
Today's Communication
Continue antibiotics.
Assessment / Plan
Severe SSTI of left third finger with gas noted in tissues
Marked leukocytosis
Fever
CKD 3b
- Est CrCl ~ 30
DM type II; uncontrolled (HbA1c = 8.8)
CAD
CHF
COPD
HTN
Recommendations:
Continue with abx (vanco, zosyn) dosed for renal renal insufficiency.
MRI ordered, but called by tech yesterday and told that patient will need clearance secondary to PPM presence. Study not likely to be performed until early next week.
Monitor white count and temperature curve.
Monitor pending blood cultures.
Tight glucose control to facilitate leukocyte function.
Given underlying degree of infection and uncontrolled DM, patient high risk for digit loss.
Chief Complaint
-: Other (Left hand infection)
Subjective / Review of Systems
Patient seen and examined. He notes ongoing discomfort in the left hand third digit.
Review of Systems: No Fever and No Chills
Vital Signs / Physical Exam
Vital Signs
Vital Signs
Temp Pulse Resp BP Pulse Ox
98.4 F 108 18 113/69 95
09/21/24 07:59 09/21/24 08:28 09/21/24 07:59 09/21/24 08:28 09/21/24 07:59
Physical Exam
Constitutional: No Acute Distress, Comfortable, Non-toxic and Obese
Eyes: Sclera Anicteric
Cardiovascular: S1/S2; Negative S3/S4
Pulmonary: Clear and Non Labored
Gastrointestinal: Soft
Extremities: Other (Left third finger remains markedly edematous and erythematous.)
Neurological: Awake and Alert
Psychological: Calm
Objective Data
Lab Data
Lab Results
09/21/24 06:35
09/21/24 06:35
Estimated Creat Clear 26 ml/min 09/21/24 06:35
Lactic Acid 1.8 mmol/L (0.7-2.0) 09/19/24 22:26
Total Bilirubin 1.3 mg/dl (0.2-1.3) 09/21/24 06:35
AST 26 U/L (17-59) 09/21/24 06:35
ALT 32 U/L (0-50) 09/21/24 06:35
Alkaline Phosphatase 148 U/L (38-126) H 09/21/24 06:35
Most recent labs reviewed.
Micro Results:
09/19/24 22:11 MRSA Screen - Final
Nose No Methicillin Resistant Staphylococcus aureus isolated.
09/20/24 07:54 Blood Culture - Preliminary
Blood/Venous No Growth in 24 hours- Final report to follow
09/19/24 16:45 Blood Culture - Preliminary
Blood/Venous No Growth in 24 hours- Final report to follow
Imaging:
09/19/2024 X-ray left hand: Osteolysis/erosion of the distal phalanx of the middle finger. Diffuse soft tissue swelling of the middle finger is noted with small foci of gas. There is extensive vascular calcifications. Please see full dictation for
additional detail. Film personally viewed.
Care Review
Plan reviewed with: Other Provider (Ortho)
[2024-09-21] MEDS: NOVOLOG FLEXPEN-LOW RESISTANCE 3 UNITS SC (13:55)
[2024-09-21 15:49] VITALS: BP 118/68
[2024-09-21 17:12] LABS: Glucose - Point of Care 220 mg/dl (70-99)
[2024-09-21] MEDS: LIPITOR 10 MG PO (17:36)
[2024-09-21] MEDS: NOVOLOG FLEXPEN-LOW RESISTANCE 2 UNITS SC (18:06)
[2024-09-21 22:31] LABS: Glucose - Point of Care 188 mg/dl (70-99)
[2024-09-21 22:46] VITALS: BP 122/80
[2024-09-21] MEDS: TYLENOL 650 MG PO (23:15)
[2024-09-22] MEDS: ZOSYN 50 IV ×4 (01:00→21:54)
[2024-09-22 05:16] LABS: % Basophils 0.3 % (0-2); % Eosinophils 0.8 % (0-6); % Lymphocytes 6.8 % (20.5-51.1); % Monocytes 6.2 % (1.7-9.3); % Neutrophils 84.9 % (42.2-75.2); Absolute Basophils 0.1 10^3/uL (0-0.2); Absolute Eosinophils 0.2 10^3/uL (0-0.7); Absolute Immature Granulocytes 0.2 10^3/uL (0-0.05); Absolute Lymphocytes 1.4 10^3/uL (1.2-3.4); Absolute Monocytes 1.3 10^3/uL (0.1-0.6); Absolute Neutrophils 17.2 10^3/uL (1.4-6.5); Hematocrit 25.5 % (39.0-52.0); Hemoglobin 8.6 g/dL (13.0-18.0); Mean Corp Hgb Conc. 33.7 g/dL (33.0-37.0); Mean Corpuscular Hgb 32.3 pg (27.0-31.0); Mean Corpuscular Volume 95.9 fL (80.0-94.0); Mean Platelet Volume 9.2 fL (7.4-10.4); Nucleated Red Blood Cells % 0 % (-); Platelet Count 264 10^3/uL (130-400); Red Blood Cell Count 2.66 10^6/uL (4.70-6.10); White Blood Cell Count 20.2 10^3/uL (4.8-10.8)
[2024-09-22 05:47] LABS: ALT (SGPT) 39 U/L (0-50); AST (SGOT) 39 U/L (17-59); Albumin 2.5 g/dl (3.5-5.0); Alkaline Phosphatase 197 U/L (38-126); Blood Urea Nitrogen 42 mg/dl (9-20); Calcium 8.2 mg/dl (8.4-10.2); Carbon Dioxide 22 mmol/L (22-30); Chloride 105 mmol/L (98-107); Estimated Creatinine Clearance 25 ml/min; Glucose 133 mg/dl (70-99); Potassium 4.4 mmol/L (3.5-5.1); Sodium 136 mmol/L (135-145); Total Bilirubin 1.1 mg/dl (0.2-1.3); eGFR 22.53
[2024-09-22 05:49] LABS: Vancomycin Random 11.7 ug/ml
[2024-09-22 05:51] VITALS: BMI 35.7
[2024-09-22 07:10] VITALS: BP 121/59
[2024-09-22] MEDS: STRIVERDI RESPIMAT 2 PUFF INH (07:55)
[2024-09-22] MEDS: SPIRIVA RESPIMAT 2.5 MCG 2 PUFF INH (07:55)
[2024-09-22] MEDS: TOPROL XL 100 MG PO ×2 (08:48→21:53)
[2024-09-22] MEDS: NSS 1000 IV (08:48)
[2024-09-22] MEDS: FEOSOL 325 MG PO (08:49)
[2024-09-22] MEDS: HEPARIN 5000 UNITS SC ×2 (08:49→21:54)
[2024-09-22] MEDS: MAG-TAB SR 84 MG PO (08:49)
[2024-09-22] MEDS: NOVOLOG FLEXPEN-LOW RESISTANCE SC (08:53)
[2024-09-22 08:55] LABS: Glucose - Point of Care 153 mg/dl (70-99)
[2024-09-22] MEDS: NOVOLOG MIX 70/30 FLEXPEN SC (09:12)
--- NOTE | 2024-09-22 09:18 | PHA.VAN.FU ---
Vancomycin Assessment / Plan
- Assessment
Renal Function: SCR Increasing (2.6->2.7)
WBC's are: Trending Down (22.2->20.2)
In the past 24 hrs, patient has been: Afebrile
Concomitant Antimicrobials: Piperacillin/Tazobactam
- Assessment - Therapeutic Drug Monitoring
Random Level: 11.7 ~22H after previous level 17.3
Calculated ke: 0.0177
Calculated half life (H): 39.1
- Dosing Plan
Dosing by Level: Re-dose today
Dosing Comments: Vanco 1G x1
- Monitoring Plan
Random Level: 09/23/24 0600
- Follow Up
Pharmacy will continue to follow.
Vancomycin Follow UP
- -
Patient Age: 83
Patient Sex: Male
Vancomycin Day #: 3
Indication: Bone And Joint
Requesting Provider: Dr. Ch
Pertinent Antimicrobial Allergies:
NKDA
Height / Weight:
Height 5 ft 9 in
Actual Weight 109.486 kg
Pertinent Past Medical History: BMI ~35, DM, CKD
- Vital Signs / Lab Results
Temp Pulse Resp BP Pulse Ox
97.7 F 81 15 121/59 98
09/22/24 07:10 09/22/24 07:58 09/22/24 07:58 09/22/24 08:48 09/22/24 07:58
Lab Results - Hematology
09/19/24 09/20/24 09/21/24
16:45 07:54 06:35
WBC 20.5 H 23.1 H 22.2 H
09/22/24
04:38
WBC 20.2 H
Lab Results - Chemistry
09/19/24 09/20/24 09/21/24
16:45 07:54 06:35
BUN 37 H 36 H 40 H
Creatinine 2.4 H 2.2 H 2.6 H
Estimated Creat Clear 30 26
Albumin 3.8 2.8 L
09/22/24
04:38
BUN 42 H
Creatinine 2.7 H
Estimated Creat Clear 25
Albumin 2.5 L
09/19/24 09/19/24
16:45 22:26
Lactic Acid 4.4 H* 1.8
Microbiology Results
09/20/24 07:54 Blood Culture - Preliminary
Blood/Venous No Growth in 48 hours- Final report to follow
09/19/24 16:45 Blood Culture - Preliminary
Blood/Venous No Growth in 48 hours- Final report to follow
09/19/24 22:11 MRSA Screen - Final
Nose No Methicillin Resistant Staphylococcus aureus isolated.
Therapeutic Drug Monitoring
Random Vancomycin 11.7 ug/ml 09/22/24 04:38
[2024-09-22] MEDS: VANCOCIN 200 IV (10:11)
--- NOTE | 2024-09-22 10:30 | W.PN.HOSP.TC ---
Addendum entered and electronically signed by Cosmo Rios DO 09/22/24 11:45:
Spoke with orthopedics. Reassessed the hand today and concern for worsening erythema. Per orthopedic surgeon, no need for MRI. Will hold heparin and make n.p.o. after midnight for planned OR on 09/23/2024
Original Note:
Today's Communication/Plan
-
Continue IV vancomycin and Zosyn
MRI hand tomorrow
Likely OR on Monday
Increase NovoLog 70/30 and ISS intensity
Assessment / Plan
Assessment / Plan
#Sepsis secondary to osteomyelitis of third digit of hand (L)
-Presented after blister on the finger popped, subsequently developed pain and swelling with fevers
-Had leukocytosis and tachycardia on arrival, SIRS positive with source of infection
-X-ray of the hand showed diffuse soft tissue swelling with small foci of gas, findings consistent with OM
-Currently on IV vancomycin and Zosyn for broad-spectrum gram-positive, negative, anaerobic coverage
-Orthopedics is following, planning for MRI Monday to further assess extent of osteomyelitis
-Added to OR schedule for 09/24, anticipate likely amputation though to what extent uncertain
-Trend CBC and temperature curve on IV antibiotics, follow blood cultures
-As needed analgesics
-Hold torsemide and Eliquis
#Poorly controlled IDDM 2
-Hemoglobin A1c 8.8% on home regimen of NovoLog 70/30 28 units twice daily
-No known microvascular ischemic disease complications
-Suspect his diabetes is contributing to his finger infection
-Initially on 14 units twice daily here, sugars improved when on home regimen
-Continue to monitor Accu-Cheks, consider diabetes consult if sugars worsen
-Increase NovoLog 70/30 to 30 units BID, increased ISS to moderate
-Blood glucose goal 140-180
#Primary hypertension
-History of LVH likely related to systemic hypertension
-Home medications include metoprolol succinate, and torsemide
-Not on first-line antihypertensive regimen
-Blood pressure currently well-controlled
#Paroxysmal AF
-Status post ablation (presumed pulmonary vein isolation)
-Home medications include metoprolol succinate and Eliquis
-Appears to be in sinus rhythm at this time, HR WNL
-Holding Eliquis as above with planned OR Monday
-Continued on telemetry
#Chronic HFrEF
-Secondary to nonischemic cardiomyopathy (?), no history of obstructive CAD
-Last echocardiogram with LVEF near 30-40%; no AICD at this time
-GDMT includes beta-laila; not on ARNI/MRA/SGLT2i due to CKD
-Home regimen also includes torsemide 10 mg daily; held at this time due to sepsis
-Appears euvolemic at this time, on RA
-Monitor I's/O's and weights
#CKD stage III-IV
#Chronic anemia
-Unclear etiology; baseline creatinine fairly volatile but likely near 2.2-2.5
-Apparent complications with anemia of chronic kidney disease; mild acidemia; no BMD known
-Chronic anemia also related to iron deficiency anemia for which he takes ferrous sulfate
-Has received light IV fluids here, creatinine stable near 2.5, bicarb 19
-Continue to trend BMP
#COPD without exacerbation
-No recent PFTs; does not require supplemental oxygen at baseline
-Home regimen includes Anoro Ellipta
-Currently on RA, no signs of bronchospasm
#Dyslipidemia
-No known ASCVD history, Home regimen includes lovastatin 20 mg nightly
#Sick sinus syndrome s/p PPM
-Heart rate slightly tachycardic here, sinus
-No signs of pacemaker dysfunction
DVT prophylaxis: SQ heparin
Diet: Carbohydrate controlled
CODE STATUS: Full code
Anticipated Discharge: > 48 hours
Subjective/Interval History
-
Date of Service: September 22, 2024
Seen and examined at the bedside. No acute events reported overnight. AFVSS this morning
Leukocytosis stable, patient denies any worsening pain
Denies any new complaints today. Plan for MRI tomorrow and OR Monday
Objective Data
-
Labs:
Laboratory Results
09/22/24
04:38
WBC 20.2 H
Hgb 8.6 L
Hct 25.5 L
Plt Count 264
Sodium 136
Potassium 4.4
Chloride 105
Carbon Dioxide 22
BUN 42 H
Creatinine 2.7 H
Glucose 133 H
Calcium 8.2 L
Total Bilirubin 1.1
AST 39
ALT 39
Alkaline Phosphatase 197 H
Vital Signs:
Vital Signs
Temp Pulse Resp BP Pulse Ox
97.7 F 81 15 121/59 98
09/22/24 07:10 09/22/24 07:58 09/22/24 07:58 09/22/24 08:48 09/22/24 07:58
I&O
09/21/24 09/22/24 09/23/24
06:59 06:59 06:59
Intake Total 480 / 480 960 / 960
Balance 480 / 480 960 / 960
Review of Systems
-
History Source: Patient
All other systems: Reviewed and negative
Physical Exam
-
General: Well Developed, No Apparent Distress, Comfortable and Obese
HEENT: Normocephalic, Atraumatic, Moist Mucous Membranes and Anicteric
Respiratory: Clear to Auscultation and Non Labored Respirations
Cardiac: Regular Rhythm and S1/S2; Negative Murmur, Rub or Gallop
GI: Soft, Nontender, Nondistended and Normal Bowel Sounds
Musculoskeletal: No Clubbing, No Cyanosis and No Edema
Skin: Warm, Dry, Normal Turgor and Other (Third digit of left hand with bandage in place); Negative Rash
Neuro: AO x 3 and Nonfocal/Grossly Intact
Psych: Calm
Data Reviewed
-
Labs: Labs Reviewed by me and Discussed with Patient
--- NOTE | 2024-09-22 10:57 | W.PN.UPDATE ---
Update Note
Progress Note Update
Patient seen and evaluated by Orthopedic surgery this morning. Patient resting comfortably in bed. He denies any new complaints or concerns at this time. Denies any fevers or chills. Endorses pain to left middle finger; denies any worsening pain.
Clinical presentation remains consistent with significant left middle finger infection with underlying osteomyelitis.
Pictures and case have been shared and discussed with attending Dr. Ming Larose. Also discussed with hospitalist Dr. Rios and infectious disease specialist Dr. Ch. Anaerobic and aerobic cultures have been obtained.
Continue with intravenous antibiotics (Vanco and Zosyn) per ID recommendations. Incorporate warm soaks TID; order placed and nursing notified.
The patient has been consented for LEFT middle finger amputation vs. ray resection. Consent signed and in patient's chart. He is placed on the OR schedule for tomorrow 09/23/2024 under the direction of Dr. Larose. Case posted with nursing
supervisor of way Claudine. NPO pMN Monday09/22/2024. Please hold SubQ Heparin 12 hours prior to planned procedure.
Orthopedic surgery will continue to follow along.
[2024-09-22 12:29] LABS: Glucose - Point of Care 291 mg/dl (70-99)
[2024-09-22] MEDS: NOVOLOG FLEXPEN-MODERATE RESISTANCE SC (12:51)
[2024-09-22] MEDS: NOVOLOG FLEXPEN-MODERATE RESISTANCE 5 UNITS SC (12:56)
--- NOTE | 2024-09-22 14:33 | W.PN.ID1 ---
Date of Service
Date of Service: September 22, 2024
Today's Communication
Continue antibiotics. Possible surgery as early as tomorrow.
Assessment / Plan
Severe SSTI of left third finger with gas noted in tissues
Marked leukocytosis
Fever
CKD 3b
- Est CrCl ~ 30
DM type II; uncontrolled (HbA1c = 8.8)
CAD
CHF
COPD
HTN
Recommendations:
Continue with abx (vanco, zosyn) dosed for renal renal insufficiency.
MRI ordered, but previously called by tech and told that patient will need clearance secondary to PPM presence. Study not likely to be performed until early next week.
Monitor white count and temperature curve.
Monitor pending blood cultures.
Tight glucose control to facilitate leukocyte function.
Given underlying degree of infection and uncontrolled DM, patient high risk for digit loss.
Chief Complaint
-: Other (Left hand infection)
Subjective / Review of Systems
Patient seen and examined. Reports ongoing left hand discomfort.
Review of Systems: No Fever and No Chills
Vital Signs / Physical Exam
Vital Signs
Vital Signs
Temp Pulse Resp BP Pulse Ox
97.7 F 81 15 121/59 98
09/22/24 07:10 09/22/24 07:58 09/22/24 07:58 09/22/24 08:48 09/22/24 07:58
Physical Exam
Constitutional: No Acute Distress, Comfortable, Non-toxic and Obese
Eyes: Sclera Anicteric
Cardiovascular: S1/S2; Negative S3/S4
Pulmonary: Clear and Non Labored
Gastrointestinal: Soft
Extremities: Other (Left third finger remains markedly edematous and erythematous. Some extension of erythema onto the palmar aspect of the hand.)
Neurological: Awake and Alert
Psychological: Calm
Objective Data
Lab Data
Lab Results
09/22/24 04:38
09/22/24 04:38
Estimated Creat Clear 25 ml/min 09/22/24 04:38
Lactic Acid 1.8 mmol/L (0.7-2.0) 09/19/24 22:26
Total Bilirubin 1.1 mg/dl (0.2-1.3) 09/22/24 04:38
AST 39 U/L (17-59) 09/22/24 04:38
ALT 39 U/L (0-50) 09/22/24 04:38
Alkaline Phosphatase 197 U/L (38-126) H 09/22/24 04:38
Most recent labs reviewed.
Micro Results:
09/22/24 11:48 Wound Culture - Pending
Finger - Left Gram Stain - Preliminary
09/22/24 11:48 Anaerobic Culture - Pending
Finger - Left
09/20/24 07:54 Blood Culture - Preliminary
Blood/Venous No Growth in 48 hours- Final report to follow
09/19/24 16:45 Blood Culture - Preliminary
Blood/Venous No Growth in 48 hours- Final report to follow
09/19/24 22:11 MRSA Screen - Final
Nose No Methicillin Resistant Staphylococcus aureus isolated.
Imaging:
09/19/2024 X-ray left hand: Osteolysis/erosion of the distal phalanx of the middle finger. Diffuse soft tissue swelling of the middle finger is noted with small foci of gas. There is extensive vascular calcifications. Please see full dictation for
additional detail. Film personally viewed.
Care Review
Plan reviewed with: Other Provider (Ortho)
[2024-09-22 14:34] VITALS: BP 131/61
[2024-09-22 16:29] LABS: Glucose - Point of Care 396 mg/dl (70-99)
[2024-09-22] MEDS: NOVOLOG FLEXPEN-MODERATE RESISTANCE 9 UNITS SC (16:35)
[2024-09-22] MEDS: LIPITOR 10 MG PO (16:39)
[2024-09-22] MEDS: NOVOLOG MIX 70/30 FLEXPEN 30 UNITS SC (16:39)
[2024-09-22 21:57] LABS: Glucose - Point of Care 191 mg/dl (70-99)
[2024-09-22 23:04] VITALS: BP 144/70
[2024-09-23] VITALS (9 sets, daily range): BP systolic 126–154; BP diastolic 61–89; BMI 35.4
[2024-09-23] MEDS: ZOSYN 50 IV ×4 (03:32→20:02)
[2024-09-23 05:53] LABS: Glucose - Point of Care 79 mg/dl (70-99)
[2024-09-23 08:00] LABS: % Basophils 0.4 % (0-2); % Eosinophils 2.1 % (0-6); % Immature Granulocytes 1.2 % (0-0.5); % Lymphocytes 8.1 % (20.5-51.1); % Monocytes 6.4 % (1.7-9.3); % Neutrophils 81.8 % (42.2-75.2); Absolute Basophils 0.1 10^3/uL (0-0.2); Absolute Eosinophils 0.3 10^3/uL (0-0.7); Absolute Immature Granulocytes 0.2 10^3/uL (0-0.05); Absolute Lymphocytes 1.3 10^3/uL (1.2-3.4); Absolute Neutrophils 13.1 10^3/uL (1.4-6.5); Hematocrit 25.9 % (39.0-52.0); Hemoglobin 8.7 g/dL (13.0-18.0); Mean Corp Hgb Conc. 33.6 g/dL (33.0-37.0); Mean Corpuscular Hgb 31.9 pg (27.0-31.0); Mean Corpuscular Volume 94.9 fL (80.0-94.0); Mean Platelet Volume 8.8 fL (7.4-10.4); Nucleated Red Blood Cells % 0 % (-); Platelet Count 289 10^3/uL (130-400); Red Blood Cell Count 2.73 10^6/uL (4.70-6.10)
[2024-09-23] MEDS: STRIVERDI RESPIMAT 2 PUFF INH (08:15)
[2024-09-23] MEDS: SPIRIVA RESPIMAT 2.5 MCG 2 PUFF INH (08:15)
[2024-09-23 08:22] LABS: Vancomycin Random 15.1 ug/ml
--- NOTE | 2024-09-23 08:41 | W.PN.HOSP.TC ---
Today's Communication/Plan
-
NPO, holding heparin and insulin, possible L finger amputation this evening per ortho.
C/w Abx
Assessment / Plan
Assessment / Plan
83 year old male with x3 weeks of nonhealing wound of the L middle finger which progressed to systemic symptoms of fevers and chills
#L Middle Finger Osteomyelitis
- hand XR showing gas foci, bone degradation, soft tissue swelling
- Ortho consulted; surgical debridement with distal amputation vs. full finger amputation, possible further imaging with MRI
- Pain control with Tylenol/Oxy prn
- c/w IV Abx, ID following
- Left finger wound culture taken, prelim report showing GPC and GNB, will follow for full report
- Possible OR this evening 16:15
#Sepsis secondary to Osteomyelitis
- BCx NG >72h. MRSA nares negative.
- c/w IV Abx, ID following
#IDDM
- sugars at home per patient are controlled, however since infection they have been elevated.
- Insulin 70/30 28U BID at home, will c/w home dose + LDISS
- NPO today for possible surgery tonight, holding basal insulin.
#Paroxysmal Afib, s/p cardioversion 10/2022
- c/w Tele
- Holding Eliquis
- holding heparin now for PM sx
#HFrEF
- last Echo 2022 EF 30-40%
- not in acute exacerbation
- c/w Metoprolol
- holding Torsemide 2/2 sepsis
#Hyperbilirubinemia (resolved)
- Tbili elevated at 1.5, now resolved. No transaminitis, no abd sx.
- will continue to monitor
#CKD Stage III
- kidney function at baseline
- c/t monitor
#COPD
- not in acute exacerbation
- c/w Striverdi Respimat
#Chronic Anemia
- iron deficiency vs. CKD IIIb
- c/w iron supplement
DVT Ppx: Heparin 5000 q12
Code Status: Full Code
Anticipated Discharge: 24 - 48 hours
Subjective/Interval History
-
Date of Service: September 23, 2024
Feeling well overall, no new fevers/chills. No acute events overnight.
Objective Data
-
Labs:
Laboratory Results
09/23/24
07:43
WBC 16.0 H
Hgb 8.7 L
Hct 25.9 L
Plt Count 289
Sodium Pending
Potassium Pending
Chloride Pending
Carbon Dioxide Pending
BUN Pending
Creatinine Pending
Glucose Pending
Calcium Pending
Total Bilirubin Pending
AST Pending
ALT Pending
Alkaline Phosphatase Pending
Vital Signs:
Vital Signs
Temp Pulse Resp BP Pulse Ox
98.0 F 61 16 128/61 98
09/23/24 07:25 09/23/24 08:15 09/23/24 08:15 09/23/24 07:25 09/23/24 08:15
I&O
09/22/24 09/23/24 09/24/24
06:59 06:59 06:59
Intake Total 960 / 960 960 / 960
Balance 960 / 960 960 / 960
Review of Systems
-
History Source: Patient
Constitutional: Reports No Symptoms
EENT: Reports No Symptoms Reported
Respiratory: Reports No Symptoms
Cardiac: Reports No Symptoms
Abdomen/GI: Reports No Symptoms
Genitourinary: Reports No Symptoms
Musculoskeletal: Reports No Symptoms
Skin: Reports No Symptoms
Neuro: Reports No Symptoms
Physical Exam
-
General: Well Developed, Well Nourished, No Apparent Distress, Comfortable and Conversant
HEENT: Normocephalic, Atraumatic, Moist Mucous Membranes, Anicteric and [place] Conjunctivae
Respiratory: Clear to Auscultation; Negative Wheezes, Rales or Rhonchi
Cardiac: Regular Rhythm and S1/S2; Negative Murmur or Rub
GI: Soft, Nontender and Nondistended
Genito-urinary: No Costovertebral Tender and Clear Urine
Musculoskeletal: No Clubbing, No Cyanosis and No Edema
Skin: Warm, Dry and IV Access / Catheter Site
Neuro: Awake, Alert and Oriented
Psych: Calm
[2024-09-23 08:47] LABS: ALT (SGPT) 50 U/L (0-50); AST (SGOT) 42 U/L (17-59); Albumin 2.7 g/dl (3.5-5.0); Alkaline Phosphatase 262 U/L (38-126); Blood Urea Nitrogen 48 mg/dl (9-20); Calcium 8.2 mg/dl (8.4-10.2); Carbon Dioxide 19 mmol/L (22-30); Chloride 105 mmol/L (98-107); Estimated Creatinine Clearance 27 ml/min; Glucose 93 mg/dl (70-99); Potassium 4.5 mmol/L (3.5-5.1); Sodium 135 mmol/L (135-145); Total Protein 5.4 g/dl (6.3-8.2); eGFR 24.72
--- NOTE | 2024-09-23 09:04 | W.PN.UPDATE ---
Update Note
Progress Note Update
Patient resting comfortably this morning. Left hand is wrapped with Kerlix. Afeb. WBAC 16.0. Upon removal left long finger noted to be unchanged from yesterday, maybe slightly worse. Significantly infected soft tissues with known underlying
osteomyelitis. Wound cultures from yesterday with a positive GS (Moderate Gram Positive Cocci;Few Gram Negative Rods). Currently on IV vancomycin and Zosyn. Shared pictures with Dr. Larose and it is mutually agreed upon that the OR is necessary.
Spoke with the OR who, is extremely busy today. Dr. Larose is available at noon today, but the OR cannot accommodate. We have tentatively scheduled this for 1615. Patient has been consented for a left long finger amputation vs. ray resection
(more likely). PLEASE HOLD SUBQ HEPARIN. continue with soaks and soft dressings. Ortho to follow. Dr. Ch aware.
[2024-09-23] MEDS: NOVOLOG FLEXPEN-MODERATE RESISTANCE SC (09:33)
[2024-09-23] MEDS: HEPARIN SC (09:34)
[2024-09-23] MEDS: NOVOLOG MIX 70/30 FLEXPEN SC (09:37)
[2024-09-23] MEDS: MAG-TAB SR 84 MG PO (09:42)
[2024-09-23] MEDS: FLUSH (NSS) 1 FLUSH IV (09:42)
[2024-09-23] MEDS: TOPROL XL 100 MG PO ×2 (09:47→20:02)
[2024-09-23 11:42] LABS: Glucose - Point of Care 113 mg/dl (70-99)
--- NOTE | 2024-09-23 13:04 | WOUNDNOTE ---
[facility] RN note: Patient admitted with infected L middle finger. For OR I+D late today by orthopedic surgeon.
See H&P for complete history.
PMH: R TKR, obesity, pacer, cardioversion, inguinal hernia repair, COPD, former smoker, IDDM.
Wound Location and type/assessment: Patient admitted with: L middle finger deep dermal wound or deeper with edema and erythema. Finger tip warm. No sensation of L 3rd finger tip, no ROM d/t swelling. He can move his other fingers. +Palpable radial
pulse.
Appetite: NPO for OR.
Pressure redistribution devices in place: [employer] Accumax. Patient can reposition and turn self in bed.
Plan: L hand dressing changed. LUE elevated on pillows. Instructed patient pressure injury prevention measurses. Patient declined elevating heels. L finger to be managed by hand surgeon. Will sign off. Call if needed. Discussed with SHELLI Padilla.
--- NOTE | 2024-09-23 13:09 | WOUNDNOTE ---
L HAND/MIDDLE FINGER
--- NOTE | 2024-09-23 15:07 | PHA.VAN.FU ---
Vancomycin Assessment / Plan
- Assessment
Renal Function: SCR Decreasing (2.7->2.5)
WBC's are: Trending Down (20.2->16)
In the past 24 hrs, patient has been: Afebrile
Concomitant Antimicrobials: Pipercillin/Tazobactam
- Assessment - Therapeutic Drug Monitoring
Random Level: 15.1 ~22H from 1G dose
- Dosing Plan
Dosing by Level: Re-dose today
Dosing Comments: Vanco 1G x1
- Monitoring Plan
Random Level: 09/24/24 0600
- Follow Up
Pharmacy will continue to follow.
Vancomycin Follow UP
- -
Patient Age: 83
Patient Sex: Male
Vancomycin Day #: 4
Indication: Bone And Joint
Requesting Provider: Dr. Ch
Pertinent Antimicrobial Allergies:
NKDA
Height / Weight:
Height 5 ft 9 in
Actual Weight 108.579 kg
Pertinent Past Medical History: BMI ~35, DM, CKD
- Vital Signs / Lab Results
Temp Pulse Resp BP Pulse Ox
98.0 F 61 16 128/61 98
09/23/24 07:25 09/23/24 08:15 09/23/24 08:15 09/23/24 07:25 09/23/24 08:15
Lab Results - Hematology
09/21/24 09/22/24 09/23/24
06:35 04:38 07:43
WBC 22.2 H 20.2 H 16.0 H
Lab Results - Chemistry
09/21/24 09/22/24 09/23/24
06:35 04:38 07:43
BUN 40 H 42 H 48 H
Creatinine 2.6 H 2.7 H 2.5 H
Estimated Creat Clear 27
Albumin 2.8 L 2.5 L 2.7 L
Microbiology Results
09/22/24 11:48 Anaerobic Culture - Preliminary
Finger - Left Culture pending. Anaerobic cultures are examined after 3
days incubation. Additional information to follow.
09/22/24 11:48 Wound Culture - Preliminary
Finger - Left Gram Stain - Preliminary
09/20/24 07:54 Blood Culture - Preliminary
Blood/Venous No Growth in 72 hours- Final report to follow
09/19/24 16:45 Blood Culture - Preliminary
Blood/Venous No Growth in 72 hours- Final report to follow
Therapeutic Drug Monitoring
Random Vancomycin 15.1 ug/ml 09/23/24 07:43
--- NOTE | 2024-09-23 15:22 | W.PN.ID1 ---
Date of Service
Date of Service: September 23, 2024
Today's Communication
Continue antibiotics. Await OR.
Assessment / Plan
Severe SSTI of left third finger with gas noted in tissues
Marked leukocytosis
Fever
CKD 3b
- Est CrCl ~ 30
DM type II; uncontrolled (HbA1c = 8.8)
CAD
CHF
COPD
HTN
Recommendations:
Continue with abx (vanco, zosyn) dosed for renal renal insufficiency.
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
Patient for tentative OR later today.
Monitor white count and temperature curve.
Monitor pending blood cultures and wound cultures.
Tight glucose control to facilitate leukocyte function.
Given underlying degree of infection and uncontrolled DM, patient high risk for digit loss.
����������������������������������������������������������
Chief Complaint
-: Other (Left hand infection)
Subjective / Review of Systems
Review of Systems: No Fever and No Chills
Vital Signs / Physical Exam
Vital Signs
Vital Signs
Temp Pulse Resp BP Pulse Ox
98.0 F 61 16 128/61 98
09/23/24 07:25 09/23/24 08:15 09/23/24 08:15 09/23/24 07:25 09/23/24 08:15
Physical Exam
Constitutional: No Acute Distress, Comfortable, Non-toxic and Obese
Eyes: Sclera Anicteric
Cardiovascular: S1/S2; Negative S3/S4
Pulmonary: Clear and Non Labored
Gastrointestinal: Soft
Extremities: Other (Left third finger remains markedly edematous and erythematous. Some extension of erythema and now discoloration onto the palmar aspect of the hand.)
Neurological: Awake and Alert
Psychological: Calm
Objective Data
Lab Data
Lab Results
09/23/24 07:43
09/23/24 07:43
Estimated Creat Clear 27 ml/min 09/23/24 07:43
Lactic Acid 1.8 mmol/L (0.7-2.0) 09/19/24 22:26
Total Bilirubin 1.0 mg/dl (0.2-1.3) 09/23/24 07:43
AST 42 U/L (17-59) 09/23/24 07:43
ALT 50 U/L (0-50) 09/23/24 07:43
Alkaline Phosphatase 262 U/L (38-126) H 09/23/24 07:43
Most recent labs reviewed.
Micro Results:
09/22/24 11:48 Anaerobic Culture - Preliminary
Finger - Left Culture pending. Anaerobic cultures are examined after 3
days incubation. Additional information to follow.
09/22/24 11:48 Wound Culture - Preliminary
Finger - Left Gram Stain - Preliminary
09/20/24 07:54 Blood Culture - Preliminary
Blood/Venous No Growth in 72 hours- Final report to follow
09/19/24 16:45 Blood Culture - Preliminary
Blood/Venous No Growth in 72 hours- Final report to follow
09/19/24 22:11 MRSA Screen - Final
Nose No Methicillin Resistant Staphylococcus aureus isolated.
Imaging:
09/19/2024 X-ray left hand: Osteolysis/erosion of the distal phalanx of the middle finger. Diffuse soft tissue swelling of the middle finger is noted with small foci of gas. There is extensive vascular calcifications. Please see full dictation for
additional detail. Film personally viewed.
[2024-09-23] MEDS: VANCOCIN 200 IV (16:27)
[2024-09-23 16:48] LABS: Glucose - Point of Care 134 mg/dl (70-99)
[2024-09-23 17:21] LABS: Glucose - Point of Care 150 mg/dl (70-99)
[2024-09-23 18:56] LABS: Glucose - Point of Care 142 mg/dl (70-99)
[2024-09-23] MEDS: FEOSOL PO (19:46)
[2024-09-23] MEDS: LIPITOR 10 MG PO (20:02)
[2024-09-23 21:33] LABS: Glucose - Point of Care 146 mg/dl (70-99)
[2024-09-24] MEDS: ZOSYN 50 IV ×4 (01:49→20:48)
[2024-09-24 06:00] VITALS: BMI 34.8
--- NOTE | 2024-09-24 07:16 | W.PN.HOSP.TC ---
Addendum entered and electronically signed by Marvin Hong MD 09/24/24 16:01:
Severe soft tissue infection of the left third finger with gas
Imaging studies consistent with osteomyelitis
S/p left middle finger ray resection with extensive debridement irrigation of subcutaneous tissue muscle tendon bone intraoperative
- Cultures with no growth
- For ID continue Vanco Zosyn. Renally dose these agents
Addendum entered and electronically signed by Marvin Hong MD 09/24/24 15:55:
Read, reviewed, and agree. See same day progress note for additional details. Time spent reviewing records in EMR, med rec, consults, notes, d/w consultants, nursing, family, and CM mins
Original Note:
Today's Communication/Plan
-
c/w abx
pain control
likely d/c home tomorrow
Assessment / Plan
Assessment / Plan
83 year old male with x3 weeks of nonhealing wound of the L middle finger which progressed to systemic symptoms of fevers and chills
#L Middle Finger Osteomyelitis
#POD1 L long finger amputation (ray resection)
- hand XR showing gas foci, bone degradation, soft tissue swelling. S/p L long finger amputation
- Left finger wound culture taken pre-post op, pre-op prelim report showing GPC and GNB, will follow for full report
- Pain control with Tylenol/Oxy prn
- c/w IV Abx, ID following
- Likely D/c tomorrow pending ortho
#Sepsis secondary to Osteomyelitis
- remains hemodynamically stable
- BCx NG >72h. MRSA nares negative.
- c/w IV Abx, ID following
#IDDM
- sugars at home per patient are controlled, however since infection they have been elevated.
- Insulin 70/30 28U BID at home, will c/w home dose + LDISS
- resume insulin; observe for diet tolerance post op
#Paroxysmal Afib, s/p cardioversion 10/2022
- c/w Tele
- Holding Eliquis, was on heparin joseph-op; holding AC until at least 24 hours post op
#HFrEF
- last Echo 2022 EF 30-40%
- not in acute exacerbation
- c/w Metoprolol
- holding Torsemide 2/2 sepsis
#Hyperbilirubinemia (resolved)
- Tbili elevated at 1.5, now resolved. No transaminitis, no abd sx.
- will continue to monitor
#CKD Stage III
- kidney function at baseline
- c/t monitor
#COPD
- not in acute exacerbation
- c/w Striverdi Respimat
#Chronic Anemia
- iron deficiency vs. CKD IIIb
- c/w iron supplement
DVT Ppx: Heparin 5000 q12
Code Status: Full Code
Anticipated Discharge: 24 - 48 hours
Subjective/Interval History
-
Date of Service: September 24, 2024
Objective Data
-
Labs:
Laboratory Results
09/24/24
06:00
WBC Pending
Hgb Pending
Hct Pending
Plt Count Pending
Sodium Pending
Potassium Pending
Chloride Pending
Carbon Dioxide Pending
BUN Pending
Creatinine Pending
Glucose Pending
Calcium Pending
Total Bilirubin Pending
AST Pending
ALT Pending
Alkaline Phosphatase Pending
Vital Signs:
Vital Signs
Temp Pulse Resp BP Pulse Ox
98.3 F 72 18 150/65 96
09/23/24 23:00 09/23/24 23:00 09/23/24 23:00 09/23/24 23:00 09/23/24 23:00
I&O
09/23/24 09/24/24 09/25/24
06:59 06:59 06:59
Intake Total 960 / 960 590 / 590
Balance 960 / 960 590 / 590
[2024-09-24 07:31] VITALS: BP 145/64
[2024-09-24] MEDS: STRIVERDI RESPIMAT 2 PUFF INH (07:39)
[2024-09-24] MEDS: SPIRIVA RESPIMAT 2.5 MCG 2 PUFF INH (07:39)
[2024-09-24 07:59] LABS: % Basophils 0.6 % (0-2); % Eosinophils 1.7 % (0-6); % Lymphocytes 6.9 % (20.5-51.1); % Monocytes 7.5 % (1.7-9.3); % Neutrophils 82.3 % (42.2-75.2); Absolute Basophils 0.1 10^3/uL (0-0.2); Absolute Eosinophils 0.3 10^3/uL (0-0.7); Absolute Immature Granulocytes 0.2 10^3/uL (0-0.05); Absolute Monocytes 1.1 10^3/uL (0.1-0.6); Absolute Neutrophils 11.9 10^3/uL (1.4-6.5); Hematocrit 26.4 % (39.0-52.0); Hemoglobin 8.9 g/dL (13.0-18.0); Mean Corp Hgb Conc. 33.7 g/dL (33.0-37.0); Mean Corpuscular Hgb 32.1 pg (27.0-31.0); Mean Corpuscular Volume 95.3 fL (80.0-94.0); Nucleated Red Blood Cells % 0 % (-); Platelet Count 321 10^3/uL (130-400); Red Blood Cell Count 2.77 10^6/uL (4.70-6.10); Red Cell Dist. Width 12.9 % (11.5-14.5); White Blood Cell Count 14.5 10^3/uL (4.8-10.8)
[2024-09-24 08:15] LABS: Vancomycin Random 16.6 ug/ml
[2024-09-24 08:15] LABS: Glucose - Point of Care 263 mg/dl (70-99)
[2024-09-24 08:38] LABS: ALT (SGPT) 48 U/L (0-50); AST (SGOT) 32 U/L (17-59); Albumin 2.6 g/dl (3.5-5.0); Alkaline Phosphatase 238 U/L (38-126); Blood Urea Nitrogen 41 mg/dl (9-20); Calcium 8.3 mg/dl (8.4-10.2); Carbon Dioxide 21 mmol/L (22-30); Chloride 106 mmol/L (98-107); Estimated Creatinine Clearance 32 ml/min; Glucose 267 mg/dl (70-99); Sodium 136 mmol/L (135-145); Total Protein 5.2 g/dl (6.3-8.2); eGFR 30.47
--- NOTE | 2024-09-24 08:38 | W.PN.ORTHO ---
Today's Communication / Plan
-
DOS: 23 September 2024
Orthopaedic Surgery: Left middle finger ray resection and extensive debridement irrigation of subcutaneous tissue muscle tendon bone approximately 12 x [address] Larose
-Intraoperative cultures with no growth to date. Preoperative wound cultures potentially polymicrobial but showing Staph aureus, group G strep and Streptococcus agalactiae
- Antibiotics as per infectious disease
- Diet per primary
-DVT PPx per primary
-Pain controlled at this time
- Nonweightbearing to left upper extremity. Splint in place. Elevation to reduce edema
- Discontinue splint postoperative day 2 to remove Thu drain
- May then perform gentle range of motion exercises with formal therapy consult and warm soaks and monitoring for sign of recurrent infection
Assessment
.
Distal Motor Intact: Yes
Dressing:
Clean, dry and intact.
Splint in place
Plan
.
Surgery / Date: 09/23/24 L MG ray resection I&D w/ Dr. Larose
Activity:
Out of bed.
PT/OT
Subjective
.
.:
Patient resting comfortably.
Vital Signs and Labs
.
Vital Signs and Labs:
Lab Results
09/24/24 07:23
Temp Pulse Resp BP Pulse Ox
98 F 64 18 145/64 98
09/24/24 07:31 09/24/24 07:31 09/24/24 07:31 09/24/24 07:31 09/24/24 07:31
[2024-09-24] MEDS: NOVOLOG MIX 70/30 FLEXPEN 30 UNITS SC ×2 (09:05→17:31)
[2024-09-24] MEDS: NOVOLOG FLEXPEN-MODERATE RESISTANCE 5 UNITS SC (09:06)
[2024-09-24] MEDS: MAG-TAB SR 84 MG PO (09:19)
[2024-09-24] MEDS: FEOSOL 325 MG PO (09:19)
[2024-09-24] MEDS: TOPROL XL 100 MG PO ×2 (09:19→20:48)
--- NOTE | 2024-09-24 09:27 | PHA.VAN.FU ---
Vancomycin Assessment / Plan
- Assessment
Renal Function: SCR Decreasing (2.5->2.1)
WBC's are: Trending Down (16->14.5)
In the past 24 hrs, patient has been: Afebrile
Concomitant Antimicrobials: Piperacillin/Tazobactam
- Assessment - Therapeutic Drug Monitoring
Random Level: 16.6 ~15H after 1G dose
- Dosing Plan
Dosing by Level: Re-dose today
Dosing Comments: Vanco 1G x1
- Monitoring Plan
Random Level: 09/25/24 0600
- Follow Up
Pharmacy will continue to follow.
Vancomycin Follow UP
- -
Patient Age: 83
Patient Sex: Male
Vancomycin Day #: 5
Indication: Bone And Joint
Requesting Provider: Dr. Ch
Pertinent Antimicrobial Allergies:
NKDA
Height / Weight:
Height 5 ft 9 in
Actual Weight 106.708 kg
Pertinent Past Medical History: BMI ~35, DM, CKD
- Vital Signs / Lab Results
Temp Pulse Resp BP Pulse Ox
98 F 64 18 145/64 98
09/24/24 07:31 09/24/24 07:31 09/24/24 07:31 09/24/24 07:31 09/24/24 07:31
Lab Results - Hematology
09/22/24 09/23/24 09/24/24
04:38 07:43 07:23
WBC 20.2 H 16.0 H 14.5 H
Lab Results - Chemistry
09/22/24 09/23/24 09/24/24
04:38 07:43 07:23
BUN 42 H 48 H 41 H
Creatinine 2.7 H 2.5 H 2.1 H
Estimated Creat Clear 27 32
Albumin 2.5 L 2.7 L 2.6 L
Microbiology Results
09/22/24 11:48 Wound Culture - Preliminary
Finger - Left Staphylococcus aureus
Group G Streptococcus
Streptococcus agalactiae
Gram Stain - Preliminary
09/23/24 18:00 Gram Stain - Preliminary
Finger - Left
09/23/24 18:00 Gram Stain - Preliminary
Finger - Left
09/20/24 07:54 Blood Culture - Preliminary
Blood/Venous No Growth in 4 days- Final report to follow
09/19/24 16:45 Blood Culture - Preliminary
Blood/Venous No Growth in 4 days- Final report to follow
09/22/24 11:48 Anaerobic Culture - Preliminary
Finger - Left Culture pending. Anaerobic cultures are examined after 3
days incubation. Additional information to follow.
Therapeutic Drug Monitoring
Random Vancomycin 16.6 ug/ml 09/24/24 07:24
[2024-09-24] MEDS: VANCOCIN 200 IV (11:48)
[2024-09-24 12:11] LABS: Glucose - Point of Care 230 mg/dl (70-99)
--- NOTE | 2024-09-24 12:22 | CM ---
Chart reviewed. L long finger amputation yesterday. Per hospitalist, likely d/c tomorrow pending ortho.
Cont abx, pain control
Plan: Home; no needs
[2024-09-24] MEDS: MIRALAX PO (13:00)
[2024-09-24] MEDS: NOVOLOG FLEXPEN-MODERATE RESISTANCE 3 UNITS SC ×2 (13:00→17:31)
[2024-09-24] MEDS: SENOKOT PO ×2 (13:51→20:54)
--- NOTE | 2024-09-24 14:46 | W.PN.ID1 ---
Date of Service
Date of Service: September 24, 2024
Today's Communication
Continue abx
Assessment / Plan
Severe SSTI of left third finger with gas noted in tissues
Marked leukocytosis
Fever
CKD 3b
- Est CrCl ~ 30
DM type II; uncontrolled (HbA1c = 8.8)
CAD
CHF
COPD
HTN
Recommendations:
Continue with abx (vanco, zosyn) dosed for renal renal insufficiency.
Await final culture results to guide further antimicrobial selection/potential de-escalation.
Monitor white count and temperature curve.
Monitor pending blood cultures and wound cultures.
Tight glucose control to facilitate leukocyte function.
����������������������������������������������������������
Chief Complaint
-: Other (Left hand infection)
Subjective / Review of Systems
Patient seen and examined. Reports doing well status post left third finger amputation. Pain controlled.
Review of Systems: No Fever
Vital Signs / Physical Exam
Vital Signs
Vital Signs
Temp Pulse Resp BP Pulse Ox
98 F 64 18 145/64 98
09/24/24 07:31 09/24/24 07:31 09/24/24 07:31 09/24/24 07:31 09/24/24 07:31
Physical Exam
Constitutional: No Acute Distress, Comfortable, Non-toxic and Obese
Eyes: Sclera Anicteric
Cardiovascular: S1/S2; Negative S3/S4
Pulmonary: Clear and Non Labored
Gastrointestinal: Soft
Extremities: Other (left hand wrapped in [place] )
Neurological: Awake and Alert
Psychological: Calm
Objective Data
Lab Data
Lab Results
09/24/24 07:23
09/24/24 07:23
Estimated Creat Clear 32 ml/min 09/24/24 07:23
Lactic Acid 1.8 mmol/L (0.7-2.0) 09/19/24 22:26
Total Bilirubin 1.0 mg/dl (0.2-1.3) 09/24/24 07:23
AST 32 U/L (17-59) 09/24/24 07:23
ALT 48 U/L (0-50) 09/24/24 07:23
Alkaline Phosphatase 238 U/L (38-126) H 09/24/24 07:23
Most recent labs reviewed.
Micro Results:
09/22/24 11:48 Wound Culture - Preliminary
Finger - Left Staphylococcus aureus
Group G Streptococcus
Streptococcus agalactiae
Gram Stain - Preliminary
09/24/24 11:06 MRSA Screen - Pending
Nose
09/23/24 18:00 Wound Culture - Pending
Finger - Left Gram Stain - Preliminary
09/23/24 18:00 Wound Culture - Pending
Finger - Left Gram Stain - Preliminary
09/20/24 07:54 Blood Culture - Preliminary
Blood/Venous No Growth in 4 days- Final report to follow
09/23/24 18:00 Anaerobic Culture - Pending
Finger - Left
09/23/24 18:00 Anaerobic Culture - Pending
Finger - Left
09/19/24 16:45 Blood Culture - Preliminary
Blood/Venous No Growth in 4 days- Final report to follow
09/22/24 11:48 Anaerobic Culture - Preliminary
Finger - Left Culture pending. Anaerobic cultures are examined after 3
days incubation. Additional information to follow.
09/19/24 22:11 MRSA Screen - Final
Nose No Methicillin Resistant Staphylococcus aureus isolated.
Imaging:
09/19/2024 X-ray left hand: Osteolysis/erosion of the distal phalanx of the middle finger. Diffuse soft tissue swelling of the middle finger is noted with small foci of gas. There is extensive vascular calcifications. Please see full dictation for
additional detail. Film personally viewed.
[2024-09-24 15:31] VITALS: BP 132/66
[2024-09-24 16:17] LABS: Glucose - Point of Care 203 mg/dl (70-99)
[2024-09-24] MEDS: LIPITOR 10 MG PO (17:27)
[2024-09-24] MEDS: TYLENOL 650 MG PO (20:54)
[2024-09-24 21:45] LABS: Glucose - Point of Care 182 mg/dl (70-99)
[2024-09-24 23:22] VITALS: BP 140/70
[2024-09-25] MEDS: ZOSYN 50 IV ×3 (02:46→14:07)
[2024-09-25 05:30] VITALS: BMI 36.1
[2024-09-25 07:30] VITALS: BP 163/73
--- NOTE | 2024-09-25 07:35 | W.PN.HOSP.TC ---
Addendum entered and electronically signed by Marvin Hong MD 09/25/24 16:15:
Culture data growing group B strep
ID recommends take transition to cefazolin. Place PICC line/midline. Home infusion paper/prescription written by ID. Likely discharge tomorrow once home infusion company has been set up.
He is right-hand dominant. States he drives with 1 hand/arm which is his right arm. Does not want transportation home. Will drive his car home. He had a lengthy discussion about this and safety for himself and others. He verbalized
understanding. He states if he did not feel safe he feels loopy or dizzy then he would ask for transportation otherwise at this time he can drive himself home safely. He lives roughly 15-20 minutes away.
Original Note:
Today's Communication/Plan
-
c/w IV Abx
Assessment / Plan
Assessment / Plan
83 year old male with x3 weeks of nonhealing wound of the L middle finger which progressed to systemic symptoms of fevers and chills
#L Middle Finger Osteomyelitis
#POD2 L long finger amputation (ray resection)
- hand XR showing gas foci, bone degradation, soft tissue swelling. S/p L long finger amputation
-Wound Cx -- Staph a., Group B strep, Strep agalactiae.
- Operative Cx pending
- Pain control with Tylenol/Oxy prn
- c/w IV Abx, ID following -- pt will need at least 2 week course of IV abx, will make CM aware so they can set up outpatient
- delfino drain removed today
#Sepsis secondary to Osteomyelitis
- remains hemodynamically stable
- BCx NG >72h. MRSA nares negative.
- c/w IV Abx, ID following -- plan for PO transition pending final Cx/sensitivity results
#IDDM
- sugars at home per patient are controlled, however since infection they have been elevated.
- Increase 70/30 from 28U to 30U
- Tolerating diet
- c/w LDISS
#Constipation, likely 2/2 sepsis vs. post op -- bowel regimen, had bowel movement.
#Paroxysmal Afib, s/p cardioversion 10/2022
- c/w Tele
- resume Eliquis
#HFrEF
- last Echo 2022 EF 30-40%
- not in acute exacerbation
- c/w Metoprolol
- holding Torsemide 2/2 sepsis, not volume overloaded at this time
#Hyperbilirubinemia (resolved)
- Tbili elevated at 1.5, now resolved. No transaminitis, no abd sx.
- will continue to monitor
#CKD Stage III
- kidney function at baseline
- c/t trend bmp
#COPD
- not in acute exacerbation
- c/w Striverdi Respimat
#Chronic Anemia
- iron deficiency vs. CKD IIIb
- c/w iron supplement
DVT Ppx: Heparin 5000 q12
Code Status: Full Code
Anticipated Discharge: Within 24 hours
Subjective/Interval History
-
Date of Service: September 25, 2024
Feeling well, no acute complaints.
Objective Data
-
Labs:
Laboratory Results
09/25/24
06:58
WBC Pending
Hgb Pending
Hct Pending
Plt Count Pending
Sodium Pending
Potassium Pending
Chloride Pending
Carbon Dioxide Pending
BUN Pending
Creatinine Pending
Glucose Pending
Calcium Pending
Total Bilirubin Pending
AST Pending
ALT Pending
Alkaline Phosphatase Pending
Vital Signs:
Vital Signs
Temp Pulse Resp BP Pulse Ox
97.9 F 66 18 140/70 97
09/24/24 23:22 09/24/24 23:22 09/24/24 23:22 09/24/24 23:22 09/24/24 23:22
I&O
09/24/24 09/25/24 09/26/24
06:59 06:59 06:59
Intake Total 590 / 590 1120 / 1120
Output Total 200 / 200
Balance 590 / 590 920 / 920
Review of Systems
-
History Source: Patient
Constitutional: Reports No Symptoms
EENT: Reports No Symptoms Reported
Respiratory: Reports No Symptoms
Cardiac: Reports No Symptoms
Abdomen/GI: Reports No Symptoms
Genitourinary: Reports No Symptoms
Musculoskeletal: Reports No Symptoms
Skin: Reports No Symptoms
Neuro: Reports No Symptoms
Physical Exam
-
General: Well Developed, Well Nourished, No Apparent Distress, Comfortable and Conversant
HEENT: Normocephalic, Atraumatic, Moist Mucous Membranes, Anicteric, [place] Conjunctivae, PERRLA, Nose Appears Normal and Ears Appear Normal
Respiratory: Clear to Auscultation; Negative Wheezes, Rales or Rhonchi
Cardiac: Regular Rhythm and S1/S2; Negative Murmur or Rub
GI: Soft, Nontender, Nondistended and Normal Bowel Sounds
Genito-urinary: No Costovertebral Tender
Musculoskeletal: No Clubbing, No Cyanosis and No Edema
Skin: Dry and IV Access / Catheter Site
Neuro: Awake, Alert and Oriented
Psych: Calm
[2024-09-25] MEDS: STRIVERDI RESPIMAT 2 PUFF INH (07:36)
[2024-09-25] MEDS: SPIRIVA RESPIMAT 2.5 MCG 2 PUFF INH (07:36)
[2024-09-25 07:39] LABS: Glucose - Point of Care 78 mg/dl (70-99)
[2024-09-25 07:51] LABS: % Basophils 0.6 % (0-2); % Immature Granulocytes 2.4 % (0-0.5); % Lymphocytes 9.3 % (20.5-51.1); % Monocytes 8.7 % (1.7-9.3); Absolute Basophils 0.1 10^3/uL (0-0.2); Absolute Eosinophils 0.4 10^3/uL (0-0.7); Absolute Immature Granulocytes 0.3 10^3/uL (0-0.05); Absolute Lymphocytes 1.2 10^3/uL (1.2-3.4); Absolute Monocytes 1.2 10^3/uL (0.1-0.6); Hematocrit 27.2 % (39.0-52.0); Hemoglobin 8.9 g/dL (13.0-18.0); Mean Corp Hgb Conc. 32.7 g/dL (33.0-37.0); Mean Corpuscular Hgb 31.7 pg (27.0-31.0); Mean Corpuscular Volume 96.8 fL (80.0-94.0); Mean Platelet Volume 8.9 fL (7.4-10.4); Nucleated Red Blood Cells % 0 % (-); Platelet Count 351 10^3/uL (130-400); Red Blood Cell Count 2.81 10^6/uL (4.70-6.10); White Blood Cell Count 13.2 10^3/uL (4.8-10.8)
--- NOTE | 2024-09-25 07:53 | W.PN.UPDATE ---
Update Note
Progress Note Update
Mr. Mancilla is POD2 left middle finger ray resection and extensive debridement irrigation of subcutaneous tissue muscle tendon bone approximately 12 x [address] Larose. He is resting comfortably in bed this morning, and denies any pain in the
hand at present. He reports he is doing well today, and has no questions or concerns at this time.
Directed exam of the left hand reveals surgical incision well approximated with sutures. Delfino drain removed without difficulty. No active drainage or bleeding at present. Patient able to wiggle other fingers. Sensation intact to light touch.
WBC 13.2 today from 14.5 yesterday. Hgb 8.9 this AM.
-Intraoperative cultures with no growth to date. Preoperative wound cultures potentially polymicrobial but showing Staph aureus, group G strep and Streptococcus agalactiae. Antibiotics as per infectious disease. Currently, vanco and zosyn.
-Diet per primary
-DVT PPx per primary.
-Pain controlled at this time. Elevation for edema control.
-Nonweightbearing to left upper extremity.
-Splint taken down this morning and delfino removed without difficulty. Soft dressing placed this morning. Recommend TID soaks with dressing change following.
-May perform gentle ROM of exposed fingers and wrist. Would benefit from PT/OT while admitted.
[2024-09-25 08:17] LABS: Vancomycin Random 17.7 ug/ml
[2024-09-25 08:25] LABS: ALT (SGPT) 40 U/L (0-50); AST (SGOT) 22 U/L (17-59); Albumin 2.7 g/dl (3.5-5.0); Alkaline Phosphatase 213 U/L (38-126); Blood Urea Nitrogen 38 mg/dl (9-20); Calcium 8.3 mg/dl (8.4-10.2); Carbon Dioxide 22 mmol/L (22-30); Chloride 107 mmol/L (98-107); Estimated Creatinine Clearance 31 ml/min; Glucose 79 mg/dl (70-99); Potassium 4.7 mmol/L (3.5-5.1); Sodium 137 mmol/L (135-145); Total Bilirubin 0.7 mg/dl (0.2-1.3); Total Protein 5.4 g/dl (6.3-8.2); eGFR 28.81
--- NOTE | 2024-09-25 10:09 | PHA.VAN.FU ---
Vancomycin Assessment / Plan
- Assessment
Renal Function: Stable (2.2)
WBC's are: Trending Down (14.5->13.2)
In the past 24 hrs, patient has been: Afebrile
Concomitant Antimicrobials: Piperacillin/Tazobactam
- Assessment - Therapeutic Drug Monitoring
Random Level: 17.7 ~19H after 1G infusion
- Dosing Plan
Dosing by Level: Hold off on dosing today
- Monitoring Plan
Random Level: 09/26/24 0600
- Follow Up
Pharmacy will continue to follow.
Vancomycin Follow UP
- -
Patient Age: 83
Patient Sex: Male
Vancomycin Day #: 6
Indication: Bone And [facility]
Requesting Provider: Dr. Ch
Pertinent Antimicrobial Allergies:
NKDA
Height / Weight:
Height 5 ft 9 in
Actual Weight 110.818 kg
Pertinent Past Medical History: BMI ~35, DM, CKD
- Vital Signs / Lab Results
Temp Pulse Resp BP Pulse Ox
97.8 F 68 16 163/73 97
09/25/24 07:30 09/25/24 07:41 09/25/24 07:41 09/25/24 07:30 09/25/24 07:41
Lab Results - Hematology
09/23/24 09/24/24 09/25/24
07:43 07:23 06:58
WBC 16.0 H 14.5 H 13.2 H
Lab Results - Chemistry
09/23/24 09/24/24 09/25/24
07:43 07:23 06:58
BUN 48 H 41 H 38 H
Creatinine 2.5 H 2.1 H 2.2 H
Estimated Creat Clear 27 32 31
Albumin 2.7 L 2.6 L 2.7 L
Microbiology Results
09/23/24 18:00 Wound Culture - Preliminary
Finger - Left S aureus-Methicillin Sensitive
Group G Streptococcus
Streptococcus agalactiae
Gram Stain - Preliminary
09/23/24 18:00 Anaerobic Culture - Preliminary
Finger - Left Culture pending. Anaerobic cultures are examined after 3
days incubation. Additional information to follow.
09/23/24 18:00 Wound Culture - Preliminary
Finger - Left Group G Streptococcus
Streptococcus agalactiae
Gram Stain - Preliminary
09/23/24 18:00 Anaerobic Culture - Preliminary
Finger - Left Culture pending. Anaerobic cultures are examined after 3
days incubation. Additional information to follow.
09/22/24 11:48 Anaerobic Culture - Preliminary
Finger - Left Culture pending. Anaerobic cultures are examined after 3
days incubation. Additional information to follow.
09/22/24 11:48 Wound Culture - Preliminary
Finger - Left S aureus-Methicillin Sensitive
Group G Streptococcus
Streptococcus agalactiae
Gram Stain - Preliminary
09/20/24 07:54 Blood Culture - Final
Blood/Venous No Growth - Final Report
09/19/24 16:45 Blood Culture - Final
Blood/Venous No Growth - Final Report
Therapeutic Drug Monitoring
Random Vancomycin 17.7 ug/ml 09/25/24 06:58
[2024-09-25 10:23] VITALS: BP 159/64; BP 90/61; PULSE 69; O2SAT 93
[2024-09-25] MEDS: NOVOLOG MIX 70/30 FLEXPEN 30 UNITS SC ×2 (10:41→17:03)
[2024-09-25] MEDS: FEOSOL 325 MG PO (10:47)
[2024-09-25] MEDS: NOVOLOG FLEXPEN-MODERATE RESISTANCE SC (10:47)
[2024-09-25] MEDS: ELIQUIS 2.5 MG PO ×2 (10:48→20:46)
[2024-09-25] MEDS: MAG-TAB SR 84 MG PO (10:48)
[2024-09-25] MEDS: MIRALAX PO (10:49)
[2024-09-25] MEDS: SENOKOT PO ×2 (10:53→20:49)
[2024-09-25] MEDS: TOPROL XL 100 MG PO ×2 (10:53→20:46)
--- NOTE | 2024-09-25 11:38 | VNURNOTE ---
Home Health Liaison met with patient at bedside to discuss [facility] nurse/therapy, visits, schedule and homebound status. Patient is agreeable and understands that visits at home will be 2-3 x per week to assess and teach medical management. Patient and
his spouse have had [facility] in the past.
[facility]. [facility] care in 1-2 days after discharge from .
[facility].
[2024-09-25 12:39] LABS: Glucose - Point of Care 259 mg/dl (70-99)
[2024-09-25] MEDS: NOVOLOG FLEXPEN-MODERATE RESISTANCE 5 UNITS SC ×2 (14:02→17:01)
[2024-09-25 14:51] VITALS: BP 128/90
--- NOTE | 2024-09-25 15:05 | CM ---
Addendum entered by Maggie Vizcaino 09/25/24 16:04:
Patient will now required IV ABX, script received and referral sent through [facility] infusion and message left with Caren to come out and teach patient, spouse also updated but she feels she will not be able to help due to her macular
degeneration.
Plan: referral sent to [facility].
Original Note:
Chart reviewed and patient to return to home with [facility] when stable.
Plan; Home with [facility].
--- NOTE | 2024-09-25 15:26 | W.PN.ID1 ---
Date of Service
Date of Service: September 25, 2024
Today's Communication
Continue antibiotics.
Assessment / Plan
Severe SSTI of left third finger with gas noted in tissues
- s/p third finger / partial 3rd ray amp.
Marked leukocytosis
Fever
CKD 3b
- Est CrCl ~ 30
DM type II; uncontrolled (HbA1c = 8.8)
CAD
CHF
COPD
HTN
Recommendations:
Cultures with group G strep and group B strep.
Narrow antibiotics to cefazolin.
Given the degree of severity of infection, and suspected ongoing infection of surrounding tissues, would treat for an additional 2 weeks with antibiotics.
Home infusion sheet given to Resident and will be passed on to Case management.
PICC line once home infusion benefit confirmed.
Continue with local care to the hand area.
Monitor white count and temperature curve.
Tight glucose control to facilitate leukocyte function.
����������������������������������������������������������
Chief Complaint
-: Other (Left hand infection)
Subjective / Review of Systems
Review of Systems: No Fever and No Chills
Vital Signs / Physical Exam
Vital Signs
Vital Signs
Temp Pulse Resp BP Pulse Ox
97.8 F 64 20 128/90 96
09/25/24 14:51 09/25/24 14:51 09/25/24 14:51 09/25/24 14:51 09/25/24 14:51
Physical Exam
Constitutional: No Acute Distress, Comfortable and Non-toxic
Pulmonary: Non Labored
Gastrointestinal: Soft, Non Tender and Non Distended
Wound: Other (left hand with dorsal and byers incisions. Minimal bloody drianage. ongoing edema of hand.)
Neurological: Awake and Alert
Psychological: Calm
Objective Data
Lab Data
Lab Results
09/25/24 06:58
09/25/24 06:58
Estimated Creat Clear 31 ml/min 09/25/24 06:58
Lactic Acid 1.8 mmol/L (0.7-2.0) 09/19/24 22:26
Total Bilirubin 0.7 mg/dl (0.2-1.3) 09/25/24 06:58
AST 22 U/L (17-59) 09/25/24 06:58
ALT 40 U/L (0-50) 09/25/24 06:58
Alkaline Phosphatase 213 U/L (38-126) H 09/25/24 06:58
Most recent labs reviewed.
Micro Results:
09/24/24 11:06 MRSA Screen - Final
Nose No Methicillin Resistant Staphylococcus aureus isolated.
09/22/24 11:48 Anaerobic Culture - Preliminary
Finger - Left NO ANAEROBES ISOLATED
09/23/24 18:00 Wound Culture - Preliminary
Finger - Left S aureus-Methicillin Sensitive
Group G Streptococcus
Streptococcus agalactiae
Gram Stain - Preliminary
09/23/24 18:00 Anaerobic Culture - Preliminary
Finger - Left Culture pending. Anaerobic cultures are examined after 3
days incubation. Additional information to follow.
09/23/24 18:00 Wound Culture - Preliminary
Finger - Left Group G Streptococcus
Streptococcus agalactiae
Gram Stain - Preliminary
09/23/24 18:00 Anaerobic Culture - Preliminary
Finger - Left Culture pending. Anaerobic cultures are examined after 3
days incubation. Additional information to follow.
09/22/24 11:48 Wound Culture - Preliminary
Finger - Left S aureus-Methicillin Sensitive
Group G Streptococcus
Streptococcus agalactiae
Gram Stain - Preliminary
09/20/24 07:54 Blood Culture - Final
Blood/Venous No Growth - Final Report
09/19/24 16:45 Blood Culture - Final
Blood/Venous No Growth - Final Report
09/19/24 22:11 MRSA Screen - Final
Nose No Methicillin Resistant Staphylococcus aureus isolated.
Imaging:
09/19/2024 X-ray left hand: Osteolysis/erosion of the distal phalanx of the middle finger. Diffuse soft tissue swelling of the middle finger is noted with small foci of gas. There is extensive vascular calcifications. Please see full dictation for
additional detail. Film personally viewed.
Care Review
Plan reviewed with: Physician (Resident)
[2024-09-25] MEDS: ANCEF 10 IV ×2 (17:00→23:35)
[2024-09-25] MEDS: LIPITOR 10 MG PO (17:05)
[2024-09-25 17:09] LABS: Glucose - Point of Care 257 mg/dl (70-99)
[2024-09-25 22:00] LABS: Glucose - Point of Care 179 mg/dl (70-99)
[2024-09-25 23:01] VITALS: BP 163/74
--- NOTE | 2024-09-26 04:30 | DOWNTIME ---
There was a [employer] Client Assistant To The President Downtime on 09/26/2024 from 0200 to 09/27/2023 at 0318 . Downtime documentation of patient's care, including medication administrations, has been reconciled in the electronic record per guidelines. Refer to the
patient's paper chart under the miscellaneous tab to see printed paper medication records and downtime forms.
[2024-09-26 05:25] VITALS: BMI 36.0
[2024-09-26 07:30] VITALS: BP 180/80
[2024-09-26 07:36] LABS: Glucose - Point of Care 137 mg/dl (70-99)
[2024-09-26] MEDS: NOVOLOG FLEXPEN-MODERATE RESISTANCE SC (07:38)
--- NOTE | 2024-09-26 07:51 | W.PN.UPDATE ---
Update Note
Progress Note Update
Status post left hand middle finger I&D with ray removal September 26, [address] Puente. Afebrile this morning and white count has been trending down. Left hand dressing changed incision has dried blood without active bleeding. Edema and ecchymosis
noted. Range of motion limited. Distal neurovascular was intact. Wound cultures potentially polymicrobial but showing Staph aureus, group G strep and Streptococcus agalactiae. Antibiotics as per infectious disease. Currently, vanco and zosyn.
-Diet per primary
-DVT PPx per primary.
-Pain controlled at this time. Elevation for edema control.
-Nonweightbearing to left upper extremity.
-Recommend TID soaks with dressing change following.
-May perform gentle ROM of exposed fingers and wrist. Would benefit from PT/OT while admitted.
[2024-09-26] MEDS: STRIVERDI RESPIMAT 2 PUFF INH (07:58)
[2024-09-26] MEDS: SPIRIVA RESPIMAT 2.5 MCG 2 PUFF INH (07:58)
--- NOTE | 2024-09-26 08:13 | W.PN.HOSP.TC ---
Addendum entered and electronically signed by Marvin Hong MD 09/26/24 16:22:
Seen and examined
Plan to discharge tomorrow has home infusion cannot be set up to the level tomorrow. His and son will be taught how to instill antibiotic considering he does not have dexterity to do
Son is coming from [facility] tomorrow
Midline has been placed
Original Note:
Today's Communication/Plan
-
c/w abx, midline placed today
CM to coordinate home VN, medical supply for home abx, teaching for patient on abx administration
Assessment / Plan
Assessment / Plan
83 year old male with x3 weeks of nonhealing wound of the L middle finger which progressed to systemic symptoms of fevers and chills
#L Middle Finger Osteomyelitis
#POD3 L long finger amputation (ray resection)
- hand XR showing gas foci, bone degradation, soft tissue swelling. S/p L long finger amputation
- Cultures showing -- Staph a., Group B/G strep
- delfino drain removed
- Pain control with Tylenol/Oxy prn
#Sepsis secondary to Osteomyelitis
- remains hemodynamically stable
- BCx NG >72h. MRSA nares negative.
- c/w IV Abx, ID following -- pt will need at least 2 week course of IV abx
- midline to be placed today
- CM aware to set up medical supply/VN
#IDDM
- sugars at home per patient are controlled, however since infection they have been elevated.
- Increase 70/30 from 28U to 30U
- Tolerating diet
- c/w LDISS
#Constipation, likely 2/2 sepsis vs. post op -- bowel regimen, passing gas, no abd pain
#Paroxysmal Afib, s/p cardioversion 10/2022
- c/w Tele
- resume Eliquis
#HFrEF
- last Echo 2022 EF 30-40%
- not in acute exacerbation
- c/w Metoprolol
- holding Torsemide 2/2 sepsis, not volume overloaded at this time
#Hyperbilirubinemia (resolved)
- Tbili elevated at 1.5, now resolved. No transaminitis, no abd sx.
- will continue to monitor
#CKD Stage III
- kidney function at baseline
- c/t trend bmp
#COPD
- not in acute exacerbation
- c/w Striverdi Respimat
#Chronic Anemia
- iron deficiency vs. CKD IIIb
- c/w iron supplement
DVT Ppx: Heparin 5000 q12
Code Status: Full Code
Anticipated Discharge: 24 - 48 hours
Subjective/Interval History
-
Date of Service: September 26, 2024
Feeling well this morning. no acute overnight events and no acute complaints.
Objective Data
-
Labs:
Laboratory Results
09/26/24
06:00
WBC Pending
Hgb Pending
Hct Pending
Plt Count Pending
Sodium Pending
Potassium Pending
Chloride Pending
Carbon Dioxide Pending
BUN Pending
Creatinine Pending
Glucose Pending
Calcium Pending
Total Bilirubin Pending
AST Pending
ALT Pending
Alkaline Phosphatase Pending
Vital Signs:
Vital Signs
Temp Pulse Resp BP Pulse Ox
98.1 F 73 18 163/74 97
09/25/24 23:01 09/26/24 08:01 09/26/24 08:01 09/25/24 23:01 09/26/24 08:01
I&O
09/25/24 09/26/24 09/27/24
06:59 06:59 06:59
Intake Total 1120 / 1120 1080 / 1080
Output Total 200 / 200
Balance 920 / 920 1080 / 1080
Review of Systems
-
History Source: Patient
Constitutional: Reports No Symptoms
EENT: Reports No Symptoms Reported
Respiratory: Reports No Symptoms
Cardiac: Reports No Symptoms
Abdomen/GI: Reports No Symptoms
Genitourinary: Reports No Symptoms
Musculoskeletal: Reports Other (post surgical L hand, bandaged, minimal pain/swelling)
Skin: Reports No Symptoms
Neuro: Reports No Symptoms
Physical Exam
-
General: Well Developed, Well Nourished, No Apparent Distress, Comfortable and Conversant
HEENT: Normocephalic, Atraumatic, Moist Mucous Membranes, PERRLA, Nose Appears Normal and Ears Appear Normal
Respiratory: Clear to Auscultation; Negative Wheezes, Rales or Rhonchi
Cardiac: Regular Rhythm and S1/S2; Negative Murmur or Rub
GI: Soft, Nontender, Nondistended and Normal Bowel Sounds
Genito-urinary: No Costovertebral Tender
Musculoskeletal: No Clubbing, No Cyanosis, No Edema and Other (Bandaged L hand, clean, dry intact. )
Skin: Warm, Dry and IV Access / Catheter Site
Neuro: Awake, Alert and Oriented
[2024-09-26] MEDS: MAG-TAB SR 84 MG PO (08:31)
[2024-09-26] MEDS: FEOSOL 325 MG PO (08:31)
[2024-09-26] MEDS: ELIQUIS 2.5 MG PO ×2 (08:31→22:22)
[2024-09-26] MEDS: NOVOLOG MIX 70/30 FLEXPEN 30 UNITS SC ×2 (08:32→17:40)
[2024-09-26] MEDS: SENOKOT PO ×2 (08:32→22:22)
[2024-09-26] MEDS: MIRALAX PO (08:32)
[2024-09-26] MEDS: TOPROL XL 100 MG PO ×2 (08:34→22:22)
[2024-09-26] MEDS: ANCEF 10 IV ×3 (08:36→22:59)
[2024-09-26 09:08] LABS: % Basophils 0.7 % (0-2); % Immature Granulocytes 2.4 % (0-0.5); % Lymphocytes 10.3 % (20.5-51.1); % Monocytes 6.3 % (1.7-9.3); % Neutrophils 77.3 % (42.2-75.2); Absolute Basophils 0.1 10^3/uL (0-0.2); Absolute Eosinophils 0.4 10^3/uL (0-0.7); Absolute Immature Granulocytes 0.3 10^3/uL (0-0.05); Absolute Lymphocytes 1.4 10^3/uL (1.2-3.4); Absolute Monocytes 0.9 10^3/uL (0.1-0.6); Absolute Neutrophils 10.5 10^3/uL (1.4-6.5); Hematocrit 26.9 % (39.0-52.0); Hemoglobin 9.2 g/dL (13.0-18.0); Mean Corp Hgb Conc. 34.2 g/dL (33.0-37.0); Mean Corpuscular Hgb 32.4 pg (27.0-31.0); Mean Corpuscular Volume 94.7 fL (80.0-94.0); Mean Platelet Volume 8.8 fL (7.4-10.4); Nucleated Red Blood Cells % 0 % (-); Platelet Count 400 10^3/uL (130-400); Red Blood Cell Count 2.84 10^6/uL (4.70-6.10); Red Cell Dist. Width 12.9 % (11.5-14.5); White Blood Cell Count 13.6 10^3/uL (4.8-10.8)
[2024-09-26 10:24] LABS: ALT (SGPT) 29 U/L (0-50); AST (SGOT) 20 U/L (17-59); Albumin 2.8 g/dl (3.5-5.0); Alkaline Phosphatase 196 U/L (38-126); Blood Urea Nitrogen 31 mg/dl (9-20); Calcium 8.3 mg/dl (8.4-10.2); Carbon Dioxide 21 mmol/L (22-30); Chloride 108 mmol/L (98-107); Estimated Creatinine Clearance 35 ml/min; Glucose 129 mg/dl (70-99); Sodium 138 mmol/L (135-145); Total Bilirubin 0.5 mg/dl (0.2-1.3); Total Protein 5.6 g/dl (6.3-8.2); eGFR 34.35
[2024-09-26 10:44] LABS: Vancomycin Random 12.8 ug/ml
[2024-09-26 12:25] LABS: Glucose - Point of Care 257 mg/dl (70-99)
[2024-09-26] MEDS: NOVOLOG FLEXPEN-MODERATE RESISTANCE 5 UNITS SC (12:29)
[2024-09-26 13:02] VITALS: BP 143/61
--- NOTE | 2024-09-26 14:17 | VATNOTE ---
09/26 Patient to be discharge with 2 weeks of home abx. Rt Midline 4FR SL placed under sterile precautions. Patient tolerated. TCL 15cm ECL0 UAC 32cm. To be redressed tomorrow.
--- NOTE | 2024-09-26 14:45 | W.PN.ID1 ---
Date of Service
Date of Service: September 26, 2024
Today's Communication
Continue antibiotics.
Assessment / Plan
Severe SSTI of left third finger with gas noted in tissues
- s/p third finger / partial 3rd ray amp.
Marked leukocytosis
- Improving
Fever
CKD 3b
- Est CrCl ~ 30
DM type II; uncontrolled (HbA1c = 8.8)
CAD
CHF
COPD
HTN
Recommendations:
Cultures with group G strep and group B strep.
Continue cefazolin.
Given the degree of severity of infection, and suspected ongoing infection of surrounding tissues, would treat for an additional 2 weeks with antibiotics.
Home infusion sheet given to Resident and will be passed on to Case management.
PICC line placed.
Continue with local care to the hand area.
Monitor white count and temperature curve.
Tight glucose control to facilitate leukocyte function.
����������������������������������������������������������
Chief Complaint
-: Other (Left hand infection)
Subjective / Review of Systems
Review of Systems: No Fever and No Chills
Vital Signs / Physical Exam
Vital Signs
Vital Signs
Temp Pulse Resp BP Pulse Ox
97.8 F 76 20 143/61 97
09/26/24 13:02 09/26/24 13:02 09/26/24 13:02 09/26/24 13:02 09/26/24 13:02
Physical Exam
Constitutional: No Acute Distress, Comfortable and Non-toxic
Pulmonary: Non Labored
Gastrointestinal: Soft, Non Tender and Non Distended
Wound: Other (left hand with dorsal and byers incisions. Minimal bloody drianage. Improved edema of hand.)
Neurological: Awake and Alert
Psychological: Calm
Objective Data
Lab Data
Lab Results
09/26/24 08:22
09/26/24 08:22
Estimated Creat Clear 35 ml/min 09/26/24 08:22
Lactic Acid 1.8 mmol/L (0.7-2.0) 09/19/24 22:26
Total Bilirubin 0.5 mg/dl (0.2-1.3) 09/26/24 08:22
AST 20 U/L (17-59) 09/26/24 08:22
ALT 29 U/L (0-50) 09/26/24 08:22
Alkaline Phosphatase 196 U/L (38-126) H 09/26/24 08:22
Most recent labs reviewed.
Micro Results:
09/24/24 11:06 MRSA Screen - Final
Nose No Methicillin Resistant Staphylococcus aureus isolated.
09/22/24 11:48 Anaerobic Culture - Preliminary
Finger - Left NO ANAEROBES ISOLATED
09/23/24 18:00 Wound Culture - Preliminary
Finger - Left S aureus-Methicillin Sensitive
Group G Streptococcus
Streptococcus agalactiae
Gram Stain - Preliminary
09/23/24 18:00 Anaerobic Culture - Preliminary
Finger - Left Culture pending. Anaerobic cultures are examined after 3
days incubation. Additional information to follow.
09/23/24 18:00 Wound Culture - Preliminary
Finger - Left Group G Streptococcus
Streptococcus agalactiae
Gram Stain - Preliminary
09/23/24 18:00 Anaerobic Culture - Preliminary
Finger - Left Culture pending. Anaerobic cultures are examined after 3
days incubation. Additional information to follow.
09/22/24 11:48 Wound Culture - Preliminary
Finger - Left S aureus-Methicillin Sensitive
Group G Streptococcus
Streptococcus agalactiae
Gram Stain - Preliminary
09/20/24 07:54 Blood Culture - Final
Blood/Venous No Growth - Final Report
09/19/24 16:45 Blood Culture - Final
Blood/Venous No Growth - Final Report
09/19/24 22:11 MRSA Screen - Final
Nose No Methicillin Resistant Staphylococcus aureus isolated.
Imaging:
09/19/2024 X-ray left hand: Osteolysis/erosion of the distal phalanx of the middle finger. Diffuse soft tissue swelling of the middle finger is noted with small foci of gas. There is extensive vascular calcifications. Please see full dictation for
additional detail. Film personally viewed.
--- NOTE | 2024-09-26 14:46 | CM ---
CM reviewed chart, patient seen bedside, agreeable to home with [facility] for IV antibiotics. Patient reports his will be able to assist, but does not drive and teaching would need to be done in the home. Caren from [facility] in to see
patient, spoke with via phone, will plan to do teaching in the home tomorrow, patients son Rey will plan to be in the home tomorrow to assist. Patient followed by VN. CM will fax line placement to [facility]. CM will continue to follow for
all discharge planning needs.
Plan; home with [facility], VN, family assist.
[2024-09-26 16:00] VITALS: BP 147/64
[2024-09-26 16:44] LABS: Glucose - Point of Care 232 mg/dl (70-99)
[2024-09-26] MEDS: NOVOLOG FLEXPEN-MODERATE RESISTANCE 3 UNITS SC (17:40)
[2024-09-26] MEDS: LIPITOR 10 MG PO (17:40)
[2024-09-26 22:48] LABS: Glucose - Point of Care 127 mg/dl (70-99)
[2024-09-26 23:42] VITALS: BP 172/78
[2024-09-27 05:36] VITALS: BMI 35.8
--- NOTE | 2024-09-27 05:41 | W.PN.ORTHO ---
Today's Communication / Plan
-
83M Status post left hand middle finger I&D with ray removal September 23, [address] Larose.
-ID following, polymicrobial cultures.
-Diet per primary
-DVT PPx per primary.
-Pain controlled at this time. Elevation for edema control.
-Nonweightbearing to left upper extremity.
-Recommend TID soaks with dressing change following.
-May perform gentle ROM of exposed fingers and wrist. Would benefit from PT/OT while admitted. Ortho f/u at 2 weeks from DOS for wound check, sutures out at 3 weeks
Assessment
.
Dressing:
Clean, dry and intact.
Plan
.
Surgery / Date: 09/23/24 L MF ray resection I&D w/ Dr. Larose
Activity:
Out of bed.
PT/OT
Subjective
.
.:
Patient resting comfortably.
Vital Signs and Labs
.
Vital Signs and Labs:
Temp Pulse Resp BP Pulse Ox
98.2 F 65 18 172/78 98
09/26/24 23:42 09/26/24 23:42 09/26/24 23:42 09/26/24 23:42 09/26/24 23:42
Physical Exam
-
exam after dressing take down shows granulating tissue along the incision- no purulence.
[2024-09-27 06:27] LABS: % Basophils 0.5 % (0-2); % Eosinophils 3.2 % (0-6); % Immature Granulocytes 2.6 % (0-0.5); % Lymphocytes 10.3 % (20.5-51.1); % Monocytes 6.6 % (1.7-9.3); % Neutrophils 76.8 % (42.2-75.2); Absolute Basophils 0.1 10^3/uL (0-0.2); Absolute Eosinophils 0.4 10^3/uL (0-0.7); Absolute Immature Granulocytes 0.3 10^3/uL (0-0.05); Absolute Lymphocytes 1.3 10^3/uL (1.2-3.4); Absolute Monocytes 0.8 10^3/uL (0.1-0.6); Absolute Neutrophils 9.7 10^3/uL (1.4-6.5); Hematocrit 26.1 % (39.0-52.0); Hemoglobin 8.6 g/dL (13.0-18.0); Mean Corpuscular Hgb 31.6 pg (27.0-31.0); Mean Platelet Volume 8.8 fL (7.4-10.4); Nucleated Red Blood Cells % 0 % (-); Platelet Count 377 10^3/uL (130-400); Red Blood Cell Count 2.72 10^6/uL (4.70-6.10); Red Cell Dist. Width 12.9 % (11.5-14.5); White Blood Cell Count 12.6 10^3/uL (4.8-10.8)
[2024-09-27 06:30] LABS: ALT (SGPT) 16 U/L (0-50); AST (SGOT) 19 U/L (17-59); Albumin 2.6 g/dl (3.5-5.0); Alkaline Phosphatase 162 U/L (38-126); Blood Urea Nitrogen 28 mg/dl (9-20); Calcium 8.1 mg/dl (8.4-10.2); Carbon Dioxide 23 mmol/L (22-30); Chloride 108 mmol/L (98-107); Estimated Creatinine Clearance 42 ml/min; Glucose 126 mg/dl (70-99); Sodium 139 mmol/L (135-145); Total Bilirubin 0.5 mg/dl (0.2-1.3); Total Protein 5.3 g/dl (6.3-8.2); eGFR 42.22
[2024-09-27 07:15] VITALS: BP 150/72
[2024-09-27 07:18] LABS: Glucose - Point of Care 126 mg/dl (70-99)
[2024-09-27] MEDS: SPIRIVA RESPIMAT 2.5 MCG 2 PUFF INH (07:53)
[2024-09-27] MEDS: STRIVERDI RESPIMAT 2 PUFF INH (07:53)
[2024-09-27] MEDS: NOVOLOG FLEXPEN-MODERATE RESISTANCE SC (08:17)
[2024-09-27] MEDS: SENOKOT 8.6 MG PO (08:21)
[2024-09-27] MEDS: FEOSOL 325 MG PO (08:21)
[2024-09-27] MEDS: MIRALAX 17 GRAMS PO (08:21)
[2024-09-27] MEDS: ELIQUIS 2.5 MG PO (08:21)
[2024-09-27] MEDS: MAG-TAB SR 84 MG PO (08:21)
[2024-09-27] MEDS: NOVOLOG MIX 70/30 FLEXPEN 30 UNITS SC (08:22)
[2024-09-27] MEDS: TOPROL XL 100 MG PO (08:30)
[2024-09-27] MEDS: ANCEF 10 IV (09:55)
[2024-09-27 11:43] LABS: Glucose - Point of Care 193 mg/dl (70-99)
[2024-09-27] MEDS: NOVOLOG FLEXPEN-MODERATE RESISTANCE 1 UNITS SC (12:01)
--- NOTE | 2024-09-27 12:11 | CM ---
Chart reviewed and patient has been cleared for discharge today plan is to home with [facility] and [facility] for home infusion, patient has a weekly copay of $7 for home infusion, per [facility], they will delivered his medication and had a nurse out
today for patient's afternoon dose. nursing aware, spouse and son will be at home and are available for teaching.
Plan; Home with [facility] and [facility] infusion.
[2024-09-27 13:12] VITALS: BP 164/73
--- NOTE | 2024-09-27 13:16 | W.PN.HOSP.TC ---
Documented by User: Deepak Mills MD, Resident 09/27/24 13:19
Today's Communication/Plan
-
d/c home w/ midline, VN, IV abx for home infusion
Assessment / Plan
Assessment / Plan
83 year old male with x3 weeks of nonhealing wound of the L middle finger which progressed to systemic symptoms of fevers and chills
#L Middle Finger Osteomyelitis
#POD4 L long finger amputation (ray resection)
- hand XR showing gas foci, bone degradation, soft tissue swelling. S/p L long finger amputation
- Cultures showing -- Staph a., Group B/G strep
- delfino drain removed
- Pain control with Tylenol/Oxy prn
- dressing changes per ortho
#Sepsis secondary to Osteomyelitis
- remains hemodynamically stable
- BCx NG >72h. MRSA nares negative.
- c/w IV Abx, ID following -- pt will need at least 2 week course of IV abx
- midline placed
- CM aware to set up medical supply/VN
#IDDM
- sugars at home per patient are controlled, however since infection they have been elevated.
- Increase 70/30 from 28U to 30U
- Tolerating diet
- c/w LDISS
#Constipation, likely 2/2 sepsis vs. post op -- bowel regimen, passing gas, no abd pain
#Paroxysmal Afib, s/p cardioversion 10/2022
- c/w Tele
- resume Eliquis
#HFrEF
- last Echo 2022 EF 30-40%
- not in acute exacerbation
- c/w Metoprolol
- holding Torsemide 2/2 sepsis, not volume overloaded at this time
#Hyperbilirubinemia (resolved)
- Tbili elevated at 1.5, now resolved. No transaminitis, no abd sx.
- will continue to monitor
#CKD Stage III
- kidney function at baseline
- c/t trend bmp
#COPD
- not in acute exacerbation
- c/w Striverdi Respimat
#Chronic Anemia
- iron deficiency vs. CKD IIIb
- c/w iron supplement
DVT Ppx: Heparin 5000 q12
Code Status: Full Code
Anticipated Discharge: Today
Subjective/Interval History
-
Date of Service: September 27, 2024
Feels well this morning. No acute complaints and no overnight events.
Objective Data
-
Labs:
Laboratory Results
09/27/24
05:49
WBC 12.6 H
Hgb 8.6 L
Hct 26.1 L
Plt Count 377
Sodium 139
Potassium 5.0
Chloride 108 H
Carbon Dioxide 23
BUN 28 H
Creatinine 1.6 H
Glucose 126 H
Calcium 8.1 L
Total Bilirubin 0.5
AST 19
ALT 16
Alkaline Phosphatase 162 H
Vital Signs:
Vital Signs
Temp Pulse Resp BP Pulse Ox
98.1 F 63 16 164/73 98
09/27/24 13:12 09/27/24 13:12 09/27/24 13:12 09/27/24 13:12 09/27/24 13:12
I&O
09/26/24 09/27/24 09/28/24
06:59 06:59 06:59
Intake Total 1080 / 1080 1060 / 1060
Balance 1080 / 1080 1060 / 1060
Review of Systems
-
History Source: Patient
Constitutional: Reports No Symptoms
EENT: Reports No Symptoms Reported
Respiratory: Reports No Symptoms
Cardiac: Reports No Symptoms
Abdomen/GI: Reports No Symptoms
Genitourinary: Reports No Symptoms
Musculoskeletal: Reports No Symptoms
Skin: Reports No Symptoms
Physical Exam
-
General: Well Developed, Well Nourished, No Apparent Distress and Comfortable
HEENT: Normocephalic, Atraumatic, Moist Mucous Membranes, Anicteric, Roxie Conjunctivae, Nose Appears Normal and Ears Appear Normal
Respiratory: Clear to Auscultation; Negative Wheezes, Rales or Rhonchi
Cardiac: Regular Rhythm and S1/S2; Negative Murmur or Rub
GI: Soft, Nontender, Nondistended and Normal Bowel Sounds
Genito-urinary: No Costovertebral Tender
Musculoskeletal: No Clubbing, No Cyanosis and Other (well appearing surgical site w/ stiches, minimally tender, granulation tissue, no purulence/discharge. Dressing clean, dry, intact)
Skin: Warm, Dry and IV Access / Catheter Site
Neuro: Awake, Alert, Oriented and AO x 3
Psych: Calm

Documented by User: Marvin Hong MD 09/28/24 15:07
Today's Communication/Plan
-
d/c home w/ midline, VN, IV abx for home infusion
Attending attestation
Read, reviewed, and agree. See same day progress note for additional details. Time spent reviewing records in EMR, med rec, consults, notes, d/w consultants, nursing, family, and CM
--- NOTE | 2024-09-27 13:25 | PTCARENOTE ---
pt discharged at this time. iv removed and midline in place for further abt tx while at home. wound treatment reviewed. pt did not have any concerns or issues at time of discharge
--- NOTE | 2024-09-27 17:01 | W.DCSUMMARY ---
Discharge Summary
Discharge Data
Date of Admission: 09/19/24
Date of Discharge: 09/27/24
Total time spent discharging patient (in min): >30m
-
Pending Results: No
Hospital Course
Discharging Physician : Dr. Deepak Mills, Dr. Marvin Hong
Disposition : Home with VN
Primary care physician : Dr. Hua Regalado
Principal Discharge diagnosis : L Middle Finger Osteomyelitis, L long finger ray resection, Sepsis secondary to Osteomyelitis, Constipation, likely 2/2 sepsis vs. post op, Hyperbilirubinemia
Chronic Discharge diagnosis : IDDM, HFrEF, CKD Stage III, Chronic Anemia
Hospital Course :
83 year old male with x3 weeks of nonhealing wound of the L middle finger which progressed to systemic symptoms of fevers and chills
#L Middle Finger Osteomyelitis
- hand XR showing gas foci, bone degradation, soft tissue swelling.Cultures of the wound showing -- Staph a., Group B/G strep
- Underwent L long finger amputation (ray resection). delfino drain was placed then safely removed.
- Pain was controlled with Tylenol/Oxy prn
- dressing changes were continued daily
- he was started on empiric antibiotics initially, which were then narrowed based on culture results.
- he was set up with a midline and sent home with VN for 2 weeks of continued abx
#Sepsis secondary to Osteomyelitis
- he met SIRS criteria on admission. He was hemodynamically stable throughout admission.
- BCx were drawn and showed no growth >72h. MRSA screen was negative.
- He was followed by ID and given IV Abx.
- Midline was place for home IV Abx as above.
#IDDM
- sugars at home per patient are controlled, however since infection they have been elevated.
- His Insulin 70/30 was increased from 28U to 30U
- he was otherwise managed on LDISS
- He was discharged on home insulin doses as sugars were expected to decrease with treatment of infection
- Follow up with PCP
#Constipation, likely 2/2 sepsis vs. post op
- He had not had a bowel movement post surgery and so he was given a bowel regimen. Constipation resolved.
#Paroxysmal Afib, s/p cardioversion 10/2022
- he was monitored on telemetry throughout admission and had no issues.
- His AC was transitioned to heparin on admission pending surgery, stopped just before surgery, and resumed thereafter.
- he was discharged on his home Eliquis dosing.
#HFrEF
- he was not in acute exacerbation on or during admission
- He was continued on Metoprolol
- His Torsemide was held secondary to sepsis. He was not volume overloaded during admission.
- He was discharged on home torsemide.
#Hyperbilirubinemia (resolved)
- Tbili was found to be elevated at 1.5, which resolved. There was no transaminitis, or abd sx.
#CKD Stage III
- kidney function at baseline throughout admission. he was monitored with serial bmps.
#COPD
- He was given home Striverdi Respimat. He was not in acute exacerbation
#Chronic Anemia, likely iron deficiency vs. CKD IIIb
- he was continued on iron supplement
Important imaging findings :
CR Hand - Left Min 3 Views:
FINDINGS:
Bones: There is osteolysis/erosion of the distal phalanx of the middle finger.
Joints: Mild degenerative changes of the first carpometacarpal joint and first metacarpophalangeal joint. Scattered degenerative changes of the interphalangeal joints.
Soft tissue: There is diffuse soft tissue swelling along the middle finger with small foci of gas. Extensive vascular calcifications.
IMPRESSION:
There is diffuse soft tissue swelling with small foci of gas along the middle finger. There is destruction/osteolysis of the distal phalanx consistent with osteomyelitis.
Procedure findings :
1. Left middle finger ray resection.
2. Left middle finger extensive irrigation and debridement of skin,
subcutaneous tissue, muscle, tendon and bone, approximately 12 x 3
cm.
Discharge Plan
-
Patient Disposition: Home with Home Care
Discharge Diagnosis/Procedures: Septic Osteomyelitis, L long finger amputation (ray resection),
Condition: Good
Diet: Low Cholesterol, 2 Gram Sodium and Diabetic, Carb Controlled
Activity: With assistance and As tolerated
Driving Restrictions: As prior to admission
Activity Restrictions/Additional Instructions:
Wound Care Instructions
L middle finger/hand-local care as per hand orthopedic surgeon's instructions. 09/26/24 Dilute Hibiclens soaks 3 times a day for 20 minutes with light dressing.
NWB LUE.
Follow up with hand orthopedic surgeon.
Referrals:
Hua Regalado MD [Family Provider] -
Prescriptions:
New
cefazolin 10 gram Recon Soln
2 g IV Q8H
Continued
lovastatin 20 mg tablet
20 mg PO HS
magnesium oxide 400 mg magnesium Capsule
400 mg PO DAILY
umeclidinium-vilanterol [Anoro Ellipta] 62.5-25 mcg/actuation blister with device
1 inh INHALATION R DAILY
Eliquis 2.5 mg Tablet
2.5 mg PO BID 30 Days Qty: 60 0RF
cyanocobalamin (vitamin B-12) 1,000 mcg Tablet
1,000 mcg PO DAILY Qty: 30 1RF
ferrous sulfate [FeroSul] 325 mg (65 mg iron) Tablet
325 mg PO DAILY Qty: 30 0RF
metoprolol succinate 50 mg Tablet Extended Release 24 Hr
100 mg PO BID Qty: 120 0RF
insulin asp prt-insulin aspart [Novolog Mix 70-30FlexPen U-100] 100 unit/mL (70-30) Insulin Pen
28 unit SC BID@0800,1700 Qty: 5 0RF
acetaminophen [Tylenol Extra Strength] 500 mg Tablet
1,000 mg PO Q6HPRN PRN (Reason: mild pain)
docusate sodium [Stool Softener] 100 mg Capsule
100 mg PO DAILYPRN PRN (Reason: constipation)
torsemide 5 mg Tablet
10 mg PO DAILY Qty: 60 0RF
Discharge Orders:
Discharge Patient (As Directed); Ordered 09/27/24
Ordered By: Deepak Mills
Discharge Date and Time
Discharge Date/Time: 09/27/24 13:35
Print Language: MALAGASY
== END 2024-09-27 13:35 | disposition home health service (06) | DRG 853 ==
LOC: 4 WEST ACU 19:16
PROVIDERS: Nurse Practitioner Family; Orthopaedic Surgery Hand Surgery; Student in an Organized Health Care Education/Training Program; ADMITTING PHYSICIAN Hospitalist; ATTENDING PHYSICIAN Hospitalist; CONSULT PHYSICIAN Internal Medicine Infectious Disease; CONSULT PHYSICIAN Specialist; EMERGENCY PHYSICIAN Emergency Medicine; FAMILY PHYSICIAN Family Medicine
PROC: 0X6 Anatomical Regions, Upper Extremities, Detachment (ICD-10-PCS; 2024-09-23)
DX: A41.01 Sepsis due to Methicillin susceptible Staphylococcus aureus (principal); A48.0 Gas gangrene; I13.0 Hypertensive heart and chronic kidney disease with heart failure and stage 1 through stage 4 chronic kidney disease, or unspecified chronic kidney disease; I50.22 Chronic systolic (congestive) heart failure; R17 Unspecified jaundice; I42.8 Other cardiomyopathies; M86.8X4 Other osteomyelitis, hand; E11.52 Type 2 diabetes mellitus with diabetic peripheral angiopathy with gangrene; E78.00 Pure hypercholesterolemia, unspecified; N18.32 Chronic kidney disease, stage 3b; I25.10 Atherosclerotic heart disease of native coronary artery without angina pectoris; J44.9 Chronic obstructive pulmonary disease, unspecified; E11.22 Type 2 diabetes mellitus with diabetic chronic kidney disease; E11.40 Type 2 diabetes mellitus with diabetic neuropathy, unspecified; E86.1 Hypovolemia; L08.89 Other specified local infections of the skin and subcutaneous tissue; E11.65 Type 2 diabetes mellitus with hyperglycemia; E66.01 Morbid (severe) obesity due to excess calories; E87.5 Hyperkalemia; E11.69 Type 2 diabetes mellitus with other specified complication; I48.0 Paroxysmal atrial fibrillation; D63.1 Anemia in chronic kidney disease; D50.9 Iron deficiency anemia, unspecified; E78.5 Hyperlipidemia, unspecified; B95.1 Streptococcus, group B, as the cause of diseases classified elsewhere; B95.4 Other streptococcus as the cause of diseases classified elsewhere; K59.00 Constipation, unspecified; M18.12 Unilateral primary osteoarthritis of first carpometacarpal joint, left hand; Z96.651 Presence of right artificial knee joint; Z68.35 Body mass index [BMI] 35.0-35.9, adult; Z87.891 Personal history of nicotine dependence; Z79.01 Long term (current) use of anticoagulants; Z95.0 Presence of cardiac pacemaker; Z90.49 Acquired absence of other specified parts of digestive tract; Z79.51 Long term (current) use of inhaled steroids; Z79.4 Long term (current) use of insulin
CPT/HCPCS: 88305; 88311; 73130; 80048; 80053; 80202; 82962; 83036; 83605; 85025; 85027; 87040; 87070; 87075; 87077; 87147; 87186; 87205; 94640; 97116; 97163; 97166; 97530; 97535; 99291

== ENCOUNTER 2024-10-15 06:13 | Day surgery (SDC) | payer OTHER, SELFPAY ==
[2024-10-14 12:32] LABS: Blood Urea Nitrogen 37 mg/dl (9-20); Calcium 9.2 mg/dl (8.4-10.2); Glucose 135 mg/dl (70-99)
[2024-10-14 12:44] LABS: Carbon Dioxide 24 mmol/L (22-30); Chloride 103 mmol/L (98-107); Potassium 5.3 mmol/L (3.5-5.1); Sodium 140 mmol/L (135-145)
[2024-10-14 13:50] VITALS: BMI 34.5
[2024-10-15] VITALS (9 sets, daily range): BP systolic 149–171; BP diastolic 69–96; BMI 34.5
[2024-10-15 11:26] LABS: Glucose - Point of Care 150 mg/dl (70-99)
[2024-10-15] MEDS: CELEBREX 200 MG PO (11:26)
[2024-10-15] MEDS: TYLENOL 1000 MG PO (11:26)
[2024-10-15 13:06] LABS: Glucose - Point of Care 129 mg/dl (70-99)
[2024-10-15] MEDS: ANCEF 5 IV (15:54)
== END 2024-10-15 16:00 | disposition home or self-care (01) ==
LOC: SDS 06:13
PROVIDERS: ATTENDING PHYSICIAN Orthopaedic Surgery Hand Surgery; FAMILY PHYSICIAN Family Medicine
DX: L08.9 Local infection of the skin and subcutaneous tissue, unspecified (principal); B99.8 Other infectious disease; Z98.890 Other specified postprocedural states
CPT/HCPCS: 10180; 26010; 11042; 36415; 80048; 82962; 87070; 87075; 87205; 93005

== ENCOUNTER → 2024-10-18 12:26 | Outpatient (REF) | payer OTHER, SELFPAY | LOC: WOUND 12:26 | PROVIDERS: ATTENDING PHYSICIAN Surgery; FAMILY PHYSICIAN Family Medicine | DX: L08.9 Local infection of the skin and subcutaneous tissue, unspecified (principal); E11.9 Type 2 diabetes mellitus without complications; I48.91 Unspecified atrial fibrillation; Z79.01 Long term (current) use of anticoagulants; Z79.4 Long term (current) use of insulin; Z89.022 Acquired absence of left finger(s) | CPT/HCPCS: 99213 ==